=== PATIENT | female | born 1980 | race Caucasian/White ===

== ENCOUNTER 2021-02-14 15:09 | Outpatient (REF) | payer OTHER, SELFPAY ==
--- NOTE | ~2021-02-14 | US_ITS ---
EXAMINATION: US VENOUS ULTRASOUND WITH DOPPLER LOWER EXTREMITY, RIGHT CLINICAL INFORMATION: Right lower extremity pain and swelling. Assess for occult DVT. Prior history right vena seal procedure. COMPARISON: Right lower extremity venous ultrasound with Doppler 10/22/2018, 10/12/2018 TECHNIQUE: Ultrasound of the deep veins is performed from the hip to the calf with compression sonography and color and pulse Doppler assessment. Spectral analysis with color-flow imaging is performed. FINDINGS: There is normal venous compression and respiratory variation and augmented flow. The visualized common femoral vein, superficial femoral vein, profunda femoral vein, popliteal vein, and the trifurcation region shows no evidence of deep venous thrombosis. No popliteal fossa cyst demonstrated. US/US venous duplex LE RT IMPRESSION: No DVT demonstrated in the right lower extremity.
== END 2021-02-14 15:10 | disposition home or self-care (01) ==
LOC: HO.HMGCX 15:09
PROVIDERS: PCP Internal Medicine; Visit Provider Nurse Practitioner Family
DX: I83.91 Asymptomatic varicose veins of right lower extremity (principal); M79.89 Other specified soft tissue disorders
CPT/HCPCS: 93971

== ENCOUNTER → 2021-02-27 14:39 | Outpatient (BNVA) | payer OTHER, SELFPAY | PROVIDERS: PCP Internal Medicine; Visit Provider Surgery Vascular Surgery ==

== ENCOUNTER 2021-03-27 07:53 | Outpatient (REF) | payer OTHER, SELFPAY ==
--- NOTE | ~2021-03-27 | US_ITS ---
EXAMINATION: BILATERAL LOWER EXTREMITY VENOUS ULTRASOUND (Reflux Exam) CLINICAL INDICATION: Lower extremity varicose veins. COMPARISON: Right lower extremity venous Doppler ultrasound on 02/14/2021. TECHNIQUE: Color flow triplex imaging and compression Doppler was performed to evaluate both the deep and the superficial systems bilaterally. To evaluate the superficial system, the examination was performed in the upright position. Color-flow Doppler ultrasound and compression ultrasound were utilized. In addition, maneuvers were utilized to demonstrate reflux. FINDINGS: 1. DEEP VENOUS ULTRASOUND OF THE RIGHT LOWER EXTREMITY: Common Femoral Vein: Compressible, normal respiratory variation and augmented flow. Femoral vein: Compressible, normal color flow and augmentation. Popliteal Vein: Compressible, normal augmentation. Deep Reflux: There is no evidence of reflux in the deep system in either the common femoral vein or the popliteal vein. There is no evidence of a Jeter's cyst. 2. SUPERFICIAL ULTRASOUND WITH DOPPLER OF RIGHT LOWER EXTREMITY GREAT SAPHENOUS VEIN: Saphenofemoral junction: 0.8 cm; Reflux: No evidence of reflux. Proximal thigh: 0.7 cm; Reflux: No evidence of reflux. Mid thigh: 0.2 cm; Reflux: Greater than 3.3 seconds of reflux. Above knee: 0.3 cm; Reflux: No evidence of reflux. At knee: 0.3 cm; Occluded. Below knee: 3 cm; Occluded. Mid calf: 0.3 cm; Reflux: Occluded. Ankle: 0.3 cm; Reflux: No evidence of reflux. DUPLICATED GREAT SAPHENOUS VEIN: Lateral, 0.4 cm at the junction, no reflux. SMALL SAPHENOUS VEIN: Saphenopopliteal junction: 0.4 cm; No evidence of reflux. Mid calf: 0.3 cm; No evidence of reflux. Distal calf: 0.3 cm; No evidence of reflux. VEIN OF GIACOMINI: None Imaged. PERFORATORS: Distal calf, 0.2 cm, no reflux. VARICOSITIES: Proximal thigh, 0.4 cm, no reflux. Distal thigh, 0.3 cm, greater than 1.8 seconds of reflux. 3. DEEP VENOUS ULTRASOUND OF THE LEFT LOWER EXTREMITY: Common Femoral Vein: Compressible, normal respiratory variation and augmented flow. Femoral vein: Compressible, normal color flow and augmentation. Popliteal Vein: Compressible, normal augmentation. Deep Reflux: There is no evidence of reflux in the deep system in either the common femoral vein or the popliteal vein. There is no evidence of a Jeter's cyst. 4. SUPERFICIAL ULTRASOUND WITH DOPPLER OF LEFT LOWER EXTREMITY GREAT SAPHENOUS VEIN: Saphenofemoral junction: 1.1 cm; Reflux: No evidence of reflux. Proximal thigh: 0.7 cm; Reflux: No evidence of reflux. Mid thigh: 0.4 cm; Reflux: No evidence of reflux. Above knee: 0.4 cm; Reflux: No evidence of reflux. At knee: 0.5 cm; Reflux: No evidence of reflux. Below knee: 0.4 cm; Reflux: No evidence of reflux. Mid calf: 0.4 cm; Reflux: No evidence of reflux. Ankle: 0.4 cm; Reflux: No evidence of reflux. DUPLICATED GREAT SAPHENOUS VEIN: Medial, 0.4 cm at the junction, no reflux. SMALL SAPHENOUS VEIN: Saphenopopliteal junction: 0.2 cm; No evidence of reflux. Mid calf: 0.2 cm; No evidence of reflux. Distal calf: 0.4 cm; greater than 1.5 seconds of reflux. VEIN OF GIACOMINI: None Imaged. PERFORATORS: None Imaged VARICOSITIES: Proximal thigh, 0.3 cm, no reflux. Midcalf, 0.3 cm, no reflux. Distal calf, 0.3 cm, no reflux. US/US venous duplex LE BI IMPRESSION: 1. Segmental right great saphenous insufficiency at the mid thigh. The right great saphenous vein is occluded at the knee to the mid calf. 2. No evidence of small saphenous venous insufficiency on the right. 3. No evidence of left great saphenous venous insufficiency. There is segmental reflux within the distal left small saphenous vein. 4. Bilateral varicosities as described. 5. No evidence of DVT or deep venous insufficiency.
== END 2021-03-27 07:54 | disposition home or self-care (01) ==
LOC: HO.US 07:53
PROVIDERS: Visit Provider Surgery Vascular Surgery
DX: I83.11 Varicose veins of right lower extremity with inflammation (principal)
CPT/HCPCS: 93970

== ENCOUNTER 2022-10-03 14:25 | Outpatient (AMB) | payer OTHER, SELFPAY ==
--- NOTE | 2022-10-03 15:04 | MHC.PC.OV ---
Vital Signs 10/03/22 15:05 Height 5 ft 3 in Weight 211 lb BMI 37.3 BP 110/64 Blood Pressure Location Lt brachial Position Sitting Pulse 87 Pulse Source Pulse Oximeter Pulse Oximetry (%) 99 Oxygen Delivery Method Room Air Intake Visit Reasons: Annual Physical Intake Note: Pt is here today for her PE Is last menstrual period known: Yes Last menstrual period: 09/13/22 Allergies tuberculin,PPD,multi-puncture Allergy (Unknown, Verified 06/20/25 10:36) reash ppd Allergy (Unknown, Uncoded 06/20/25 10:36) Rash Medication List - Last Reconciled 10/03/22 by Ameena Ryan MD No Known Home Meds Tobacco use date assessed: 10/03/22 HPI Annual Physical HPI Details 32-year-old lady here today for physical exam. She is overdue for screening mammogram and cervical cancer screening,, both of which came back with negative results. She is up-to-date with her COVID vaccine including the booster and is up-to-date with flu shot. [facility] Medical History (Updated 08/02/25 @ 17:04 by Yesenia Uribe APRN) Generalized headaches Colon cancer screening Reactive airway disease with wheezing Irregular menstrual cycle Anemia NATALIA on CPAP Hx of deep venous thrombosis Right leg DVT Impaired fasting glucose Lateral epicondylitis of left elbow Normal Pap smear Obesity Varicose veins of right lower extremity Mild intermittent asthma Obstructive sleep apnea on CPAP Urinary, incontinence, stress female Surgical History History of open reduction and internal fixation (ORIF) procedure Family History Father HTN (hypertension) Colon cancer Mother HTN (hypertension) Diabetes mellitus Mental health disorder Brother Parkinson disease Sister Depression Mental health disorder Brother No problems noted. Brother No problems noted. 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 1. Little interest or pleasure in doing things: more than half the days 2. Feeling down, depressed, or hopeless: several days 3. Trouble falling or staying asleep, or sleeping too much: more than half the days 4. Feeling tired or having little energy: not at all 5. Poor appetite or overeating: several days 6. Feeling bad about yourself - or that you are a failure or have let yourself or your family down: several days 7. Trouble concentrating on things, such as reading the newspaper or watching television: nearly every day 8. Moving or speaking so slowly that other people could have noticed. Or the opposite - being so fidgety or restless that you have been moving around a lot more than usual: nearly every day 9. Thoughts that you would be better off or of hurting yourself in some way: not at all Total score: 13 Source: Developed by Drs. Jas Bernal, Rae Escoto, Shashi Stafford and colleagues, with an educational abiel from [employer]. Thrive Questionnaire Date Thrive assessed: 10/03/22 I am a: Patient What is your living situation today?: I have a steady place to live Within the past 12 months, did the food you bought not last and you didn't have the money to get more?: Sometimes True Within the past 12 months, did you worry whether your food would run out before you got money to buy more?: Never true Do you have trouble paying for medicines?: No Do you have trouble getting transportation to medical appointments?: No Do you have trouble paying your heating and electricity bill?: No Do you have trouble taking care of your child, family member or friend?: No Do you have trouble with day-to-day activities such as bathing, preparing meals, shopping, managing finances, etc.?: No Are you currently unemployed and looking for a job?: No Are you interested in more education?: No AUDIT C Alcohol Use Questionnaire (AUDIT-C) 1. How often do you have a drink containing alcohol?: Monthly or less 2. How many drinks containing alcohol do you have on a typical day when you are drinking?: 1 or 2 3. How often do you have six or more drinks on one occasion?: Never Total Score: 1 JULIO C-7 AMB Questionnaire JULIO C-7 Date JULIO C - 7 assessed: 10/03/22 Feeling nervous, anxious, or on edge: 2 = More than half the days Not being able to stop or control worryin = More than half the days Worrying too much about different things: 2 = More than half the days Trouble relaxin = Several days Being so restless that it is hard to sit still: 2 = More than half the days Becoming easily annoyed or irritable: 2 = More than half the days Feeling afraid as if something awful might happen: 0 = Not at all Total JULIO C-7 score (0-4 normal; 5-9 mild; 10-14 moderate; 15-21 severe): 11 Source: Developed by Drs. Jas Bernal, Rae Escoto, Shashi Stafford and colleagues, with an educational abiel from [employer]. Physical exam (Primary Care) Vital Signs: Last Vital Signs Pulse 87 10/03/22 15:05 BP 110/64 10/03/22 15:05 Pulse Ox 99 10/03/22 15:05 Oxygen Delivery Method Room Air 10/03/22 15:05 BMI result Body Mass Index 37.3 Tobacco/Smoking Status: Tobacco use Status Tobacco use date assessed 10/03/22 10/03/22 15:07 Patient Tobacco Use Status Never used Tobacco 10/03/22 15:07 e-Cigarette/Vaping Use Never Used 10/03/22 15:07 PHQ-9: PHQ-9 Score PHQ-9: Total score 13 06/13/24 02:33 Thrive Assessment: Date of Thrive Assessment Date Thrive assessed 10/03/22 10/03/22 15:16 Office Procedures Flu Questionnaire Does the patient have a severe egg allergy?: No Does the patient have severe life threatening allergies?: No Does the patient have a fever or illness today?: No Has the patient ever had Guillain-Powers Syndrome?: No Has the patient ever had any past reaction to a flu shot?: No Immunizations flu vacc [id number] 6mos up(PF) 60 mcg(15 mcgx4)/0.5 mL IM syringe Performing Provider: Ameena Ryan MD Performing Location: [facility] [place] [facility] Administered by: Alondra Corona CMA on 10/03/22 15:20 Dose Route Admin Location Dispensed Lot Number Expiration Date NDC Integrated Circuit Layout Designer 0.5 mL IM Left Deltoid 0.5 mL [id number] 03/21/23 23723-121-32 [employer] Total Dispensed Waste 0.5 mL 0 % VIS Given Date VIS Provided VIS Publication Date 10/03/22 Single Vaccine 21 Eligibility Eligibility Date Funding Source Not [facility] Eligible 10/03/22 Private Coding Level of Care Code Admin Sign Off/No Billing Diagnoses Obesity E66.9 Impaired fasting glucose R73.01 Annual visit for general adult medical examination with abnormal findings Z00.01 Irregular menstrual cycle N92.6 Cervical cancer screening Z12.4 Reactive airway disease with wheezing J45.909
[2022-10-03 15:05] VITALS: BP 110/64; PULSE 87; O2SAT 99; BMI 37.3
== END 2022-10-03 15:49 | disposition home or self-care (01) ==
LOC: HO.HMGC 14:25
PROVIDERS: PCP Internal Medicine; Visit Provider Internal Medicine
DX: E66.9 Obesity, unspecified (principal); R73.01 Impaired fasting glucose; Z00.01 Encounter for general adult medical examination with abnormal findings; N92.6 Irregular menstruation, unspecified; Z12.4 Encounter for screening for malignant neoplasm of cervix; J45.909 Unspecified asthma, uncomplicated
CPT/HCPCS: 99499

== ENCOUNTER 2023-07-16 12:01 | Outpatient (AMB) | payer OTHER, SELFPAY ==
--- NOTE | 2023-07-16 12:42 | AM.OFFVISNUR ---
Intake Intake Visit Reasons: TDAP Allergies tuberculin,PPD,multi-puncture Allergy (Unknown, Verified 10/03/22 15:29) reash ppd Allergy (Unknown, Uncoded 10/03/22 15:29) Rash Immunizations Boostrix Tdap 2.5 Lf unit-8 mcg-5 Lf/0.5 mL intramuscular syringe Performing Provider: Ameena Ryan MD Performing Location: [facility] Administered by: Alondra Corona CMA on 07/16/23 12:42 Dose Route Admin Location Dispensed Lot Number Expiration Date NDC Journeyman Mechanic 0.5 mL IM Left Deltoid 0.5 mL [id number] 10/02/25 [id number] [employer] Live VIS Given Date VIS Provided VIS Publication Date 07/16/23 Single Vaccine 21 Eligibility Eligibility Date Funding Source Not [facility] Eligible 07/16/23 Private Coding Assessment & Plan Assessment & Plan Orders: Orders TDaP Immunization Today Z23 - Encounter for immunization
== END 2023-07-16 12:44 | disposition home or self-care (01) ==
PROVIDERS: PCP Internal Medicine; Visit Provider Internal Medicine
DX: Z23 Encounter for immunization (principal)
CPT/HCPCS: 90471; 90715

== ENCOUNTER 2023-07-25 16:56 | Outpatient (REF) | payer OTHER, SELFPAY ==
[2023-07-28 22:54] LABS: Mumps Virus IgG Antibody <9.00 AU/mL; Rubella IgG Antibody 3.97 Index
== END 2023-07-25 16:57 | disposition home or self-care (01) ==
LOC: HO.LAB 16:56
PROVIDERS: PCP Internal Medicine; Visit Provider Internal Medicine
DX: Z01.84 Encounter for antibody response examination (principal)
CPT/HCPCS: 36415; 86735; 86762; 86765

== ENCOUNTER 2023-08-20 12:20 | Outpatient (AMB) | payer OTHER, SELFPAY ==
--- NOTE | 2023-08-20 12:32 | AM.OFFVISNUR ---
Intake Intake Visit Reasons: MMR Intake Note: pt was here in office for MMR vaccine. first vaccine given, tolerated well and made another appt in 4 weeks for second dose Allergies tuberculin,PPD,multi-puncture Allergy (Unknown, Verified 10/03/22 15:29) reash ppd Allergy (Unknown, Uncoded 10/03/22 15:29) Rash Immunizations M-M-R II (PF) 1,000-12,500 TCID50/0.5 mL subcutaneous solution Performing Provider: Ameena Ryan MD Performing Location: [place] [facility] Administered by: Danny Mike CMA on 08/20/23 12:48 Dose Route Admin Location Dispensed Lot Number Expiration Date NDC Nipple Threader 0.5 mL subcut Left Arm 0.5 mL [id number] 06/18/24 2779-9562-29 [employer] D VIS Given Date VIS Provided VIS Publication Date 08/20/23 Single Vaccine 21 Eligibility Eligibility Date Funding Source Not [facility] Eligible 08/20/23 Private Coding Assessment & Plan Assessment & Plan Orders: Orders MMR Immunization Today Z23 - Encounter for immunization
== END 2023-08-20 13:13 | disposition home or self-care (01) ==
LOC: HO.HMGC 12:20
PROVIDERS: PCP Internal Medicine; Visit Provider Internal Medicine
DX: Z23 Encounter for immunization (principal)
CPT/HCPCS: 90471; 90707

== ENCOUNTER 2023-09-17 12:12 | Outpatient (AMB) | payer OTHER, SELFPAY ==
--- NOTE | 2023-09-17 12:19 | AM.OFFVISNUR ---
Intake Intake Visit Reasons: mmr 2nd round Intake Note: Pt is here for MMR booster Allergies tuberculin,PPD,multi-puncture Allergy (Unknown, Verified 09/17/23 12:28) reash ppd Allergy (Unknown, Uncoded 09/17/23 12:28) Rash Immunizations M-M-R II (PF) 1,000-12,500 TCID50/0.5 mL subcutaneous solution Performing Provider: Ameena Ryan MD Performing Location: [facility] Administered by: Lynnette Marcelo CMA on 09/17/23 12:30 Dose Route Admin Location Dispensed Lot Number Expiration Date NDC Metal Container Maker 0.5 mL subcut Left Arm 0.5 mL [id number] 06/18/24 2089-7488-25 [employer] D VIS Given Date VIS Provided VIS Publication Date 09/17/23 Single Vaccine 21 Eligibility Eligibility Date Funding Source Not [facility] Eligible 09/17/23 Private Coding Assessment & Plan Assessment & Plan Orders: Orders MMR Immunization Today Z23 - Encounter for immunization
== END 2023-09-17 12:58 | disposition home or self-care (01) ==
PROVIDERS: PCP Internal Medicine; Visit Provider Internal Medicine
DX: Z23 Encounter for immunization (principal)
CPT/HCPCS: 90471; 90707

== ENCOUNTER 2023-09-17 12:34 | Outpatient (REF) | payer OTHER, SELFPAY | END 2023-09-17 12:35 | disposition home or self-care (01) | LOC: HO.HMGCLDS 12:34 | PROVIDERS: PCP Internal Medicine; Visit Provider Internal Medicine | DX: Z01.84 Encounter for antibody response examination (principal) | CPT/HCPCS: 36415; 86787 ==

== ENCOUNTER 2024-01-13 08:52 | Outpatient (AMB) | payer OTHER, SELFPAY ==
[2024-01-13 08:58] VITALS: BP 132/94; PULSE 88; O2SAT 98; BMI 38.2
--- NOTE | 2024-01-13 08:58 | AM.OFFWIN_ITS ---
Intake Vital Signs 3 01/13/24 08:58 Height 5 ft 2 in Weight 209 lb BMI 38.2 BP 132/94 H Blood Pressure Location Lt brachial Position Sitting Pulse 88 Pulse Source Pulse Oximeter Pulse Oximetry (%) 98 Oxygen Delivery Method Room Air Intake Visit Reasons: EP LT ankle pain Patient Tobacco Use Status: Never used Tobacco Allergies tuberculin,PPD,multi-puncture Allergy (Unknown, Verified 01/13/24 08:59) reash ppd Allergy (Unknown, Uncoded 09/17/23 12:28) Rash Medication List - Last Reconciled 01/13/24 by Candis Leslie MD albuterol sulfate 90 mcg/actuation 2 puffs inhalation Q6H PRN No Known Home Meds Do you need a note to return to daycare/school/sports/work: Yes HPI EP LT ankle pain 2 HPI0 Details Patient is a 43-year-old female who walks all day Came in today to be evaluated for pain left heel area Patient says that it started Friday, and got worse to a point where she was not able to walk She took ibuprofen which did help but then pain came back On examination she is tender around left heel area I have ordered x-ray to see if she has developed a heel spur Meanwhile I have sent naproxen 500 mg that she may take with food b.i.d. for upper 10 days Note given , she may continue working sitting down for next 1 week PFSH Medical History Reactive airway disease with wheezing Irregular menstrual cycle Anemia NATALIA on CPAP Hx of deep venous thrombosis Right leg DVT Impaired fasting glucose Lateral epicondylitis of left elbow Normal Pap smear Obesity Varicose veins of right lower extremity Mild intermittent asthma Obstructive sleep apnea on CPAP Depression with anxiety Urinary, incontinence, stress female Surgical History History of open reduction and internal fixation (ORIF) procedure Family History Father HTN (hypertension) Colon cancer Mother HTN (hypertension) Diabetes mellitus Mental health disorder Brother Parkinson disease Sister Depression Mental health disorder Brother No problems noted. Brother No problems noted. Maternal Grandfather Tuberculosis Maternal Grandmother Diabetes mellitus Liver problem Paternal Grandfather Unknown family medical history Paternal Grandmother Unknown family medical history Social History Housing: Apartment Alcohol intake: current Alcohol intake frequency: a few times a month Patient Tobacco Use Status: Never used Tobacco e-Cigarette/Vaping Use: Never Used service: No Current occupational status: employed Cognitive needs: No Hearing needs: No Vision needs: Yes Review of Systems Const All systems reviewed & are unremarkable except as noted in HPI and below Physical Exam Vital Signs: Last Vital Signs Pulse 88 01/13/24 08:58 BP 132/94 H 01/13/24 08:58 Pulse Ox 98 01/13/24 08:58 Oxygen Delivery Method Room Air 01/13/24 08:58 BMI result Body Mass Index 38.2 Const General: no acute distress Orientation/consciousness: patient oriented x3 Eyes General: appearance normal, both eyes and all related structures Resp Effort & Inspection: normal respiratory effort and able to speak in complete sentences Auscultation: clear to auscultation bilaterally Cardio Other: S1 S2 Neuro General: patient oriented x3 Extrem Ankle/foot/toe images: 2 1. Pain with pressure Psych Mental Status: mental status grossly normal Assessment & Plan Assessment & Plan (1) Pain of left heel: Code(s): M79.672 - Pain in left foot Plan Patient is a 43-year-old female who walks all day Came in today to be evaluated for pain left heel area Patient says that it started Friday, and got worse to a point where she was not able to walk She took ibuprofen which did help but then pain came back On examination she is tender around left heel area , there no signs of infection, dorsalis pedis pulse 2 +, she is able to all toes without any discomfort No pain with ankle movement I have ordered x-ray to see if she has developed a heel spur Meanwhile I have sent naproxen 500 mg that she may take with food b.i.d. for upper 10 days Note given , she may continue working sitting down for next 1 week Orders: Orders 2 XR foot LT min 3V Today M79.672 - Pain in left foot Medications: New 2 naproxen 500 mg PO BID PRN 20 tabs 0RF pain 10 days Coding Level of Care Code Est Pt Level 3 (07795) Diagnoses Pain of left heel M79.672
== END 2024-01-13 10:06 | disposition home or self-care (01) ==
PROVIDERS: PCP Internal Medicine; Visit Provider Internal Medicine
DX: M79.672 Pain in left foot (principal)
CPT/HCPCS: 99213

== ENCOUNTER 2024-01-13 10:08 | Outpatient (REF) | payer OTHER, SELFPAY ==
--- NOTE | ~2024-01-13 | XR_ITS ---
EXAMINATION: XR FOOT, LEFT CLINICAL INFORMATION: Pain in left foot. COMPARISON: 04/26/2019. TECHNIQUE: AP, lateral, and oblique views of the left foot. FINDINGS: The bones and soft tissues are normal. No fracture. Alignment is anatomic. Joint spaces are maintained. Mild hypertrophic change along the dorsal aspect of the calcaneus. Bone mineralization is normal. Mild degenerative changes in the first metatarsophalangeal joint. XR/XR foot LT min 3V IMPRESSION: 1. Mild degenerative changes first metatarsophalangeal joint. 2. Mild hypertrophic change along the dorsal aspect of the calcaneus.
== END 2024-01-13 10:09 | disposition home or self-care (01) ==
LOC: HO.HMGCX 10:08
PROVIDERS: PCP Internal Medicine; Visit Provider Internal Medicine
DX: M79.672 Pain in left foot (principal)
CPT/HCPCS: 73630

== ENCOUNTER 2024-02-23 11:00 | Outpatient (AMB) | payer OTHER, SELFPAY ==
[2024-02-23 12:38] VITALS: BP 120/70; PULSE 76; TEMP 36.6; O2SAT 97; BMI 37.9
--- NOTE | 2024-02-23 12:38 | MHC.OFFWIV ---
Intake Vital Signs 02/23/24 12:38 Height 5 ft 2 in Weight 207 lb BMI 37.9 BP 120/70 Blood Pressure Location Lt brachial Position Sitting Pulse 76 Pulse Source Pulse Oximeter Temp 97.9 F Temp Source Temporal Artery Scan Pulse Oximetry (%) 97 Oxygen Delivery Method Room Air Intake Visit Reasons: EP sinus infection/pressure asthma Intake Note: pt is here today for sinus infection pressure asthma started 1 week ago Patient Tobacco Use Status: Never used Tobacco Allergies tuberculin,PPD,multi-puncture Allergy (Unknown, Verified 02/23/24 12:41) reash ppd Allergy (Unknown, Uncoded 02/23/24 12:41) Rash Do you need a note to return to daycare/school/sports/work: Yes HPI EP sinus infection/pressure asthma HPI Details Patient presents for a sick visit. Reporting symptoms of sinus congestion, sore throat and difficulty swallowing. Low-grade fever. No family member is sick. No recent travel. Patient reports symptoms of malaise and fatigue. [facility] [place] Medical History Reactive airway disease with wheezing Irregular menstrual cycle Anemia NATALIA on CPAP Hx of deep venous thrombosis Right leg DVT Impaired fasting glucose Lateral epicondylitis of left elbow Normal Pap smear Obesity Varicose veins of right lower extremity Mild intermittent asthma Obstructive sleep apnea on CPAP Depression with anxiety Urinary, incontinence, stress female Surgical History History of open reduction and internal fixation (ORIF) procedure Family History Father HTN (hypertension) Colon cancer Mother HTN (hypertension) Diabetes mellitus Mental health disorder Brother Parkinson disease Sister Depression Mental health disorder Brother No problems noted. Brother No problems noted. Maternal Grandfather Tuberculosis Maternal Grandmother Diabetes mellitus Liver problem Paternal Grandfather Unknown family medical history Paternal Grandmother Unknown family medical history Social History Housing: Apartment Alcohol intake: current Alcohol intake frequency: a few times a month Patient Tobacco Use Status: Never used Tobacco e-Cigarette/Vaping Use: Never Used service: No Current occupational status: employed Cognitive needs: No Hearing needs: No Vision needs: Yes Physical Exam Vital Signs: Last Vital Signs Temp 97.9 F 02/23/24 12:38 Pulse 76 02/23/24 12:38 BP 120/70 02/23/24 12:38 Pulse Ox 97 02/23/24 12:38 Oxygen Delivery Method Room Air 02/23/24 12:38 BMI result Body Mass Index 37.9 Const General: cooperative and healthy appearing Nutritional Appearance: well nourished Orientation/consciousness: patient oriented x3 Limitations: no limitations HEENT Head: Yes normal to inspection Eyes General: appearance normal, both eyes and all related structures Neck Neck: Yes normal visual inspection Chest Chest palpation & inspection: normal palpation of entire chest wall Resp Effort & Inspection: normal respiratory effort Neuro General: patient oriented x3 Assessment & Plan Assessment & Plan (1) Upper respiratory tract infection: Code(s): J06.9 - Acute upper respiratory infection, unspecified Plan: Antibiotics ordered. Increase fluid intake. Tylenol for aches and pains. If symptoms worsen, follow-up here for a recheck. Coding Level of Care Code Est Pt Level 3 (26700) Diagnoses Upper respiratory tract infection J06.9
== END 2024-02-23 14:03 | disposition home or self-care (01) ==
PROVIDERS: PCP Internal Medicine; Visit Provider Internal Medicine
DX: J06.9 Acute upper respiratory infection, unspecified (principal)
CPT/HCPCS: 99213

== ENCOUNTER 2024-06-10 15:04 | Outpatient (AMB) | payer OTHER, SELFPAY ==
--- NOTE | 2024-06-10 15:59 | MHC.PC.OV ---
Vital Signs 06/10/24 16:00 Height 5 ft 2 in Weight 210 lb BMI 38.4 BP 110/70 Blood Pressure Location Lt brachial Position Sitting Pulse 68 Pulse Source Pulse Oximeter Pulse Oximetry (%) 97 Oxygen Delivery Method Room Air Intake Visit Reasons: PE Intake Note: Pt is here today for her PE Last mammogram 09/13/19, papsmear 2019 Allergies tuberculin,PPD,multi-puncture Allergy (Unknown, Verified 06/13/24 17:12) reash ppd Allergy (Unknown, Uncoded 06/13/24 17:12) Rash Medication List - Last Reconciled 06/13/24 by Ameena Ryan MD albuterol sulfate 90 mcg/actuation 2 puffs inhalation Q6H PRN naproxen 500 mg PO BID PRN 10 days Tobacco use date assessed: 06/10/24 Dental Screening Dental Screen Date: 06/10/24 Did you have a dental visit in the last 12 months?: No Did you have a dental problem in the last 6 months where you did not have access to dental care?: No Was dental information given to patient?: Patient has dentist HPI PE HPI Details 44-year-old lady here today for physical exam. She is overdue for screening mammogram, last done in 2019, and last cervical cancer screening was done in 2019 which showed negative findings She has obstructive sleep apnea currently on CPAP, has mild intermittent asthma takes albuterol inhaler as needed. Patient states that mom was just diagnosed with COVID, she is self tested this morning and came back faintly positive would like to get rechecked. Denies any fever, no cough no headache but has some nasal congestion but no sore throat. Complains of difficulty keeping her focus at tasks, unable to stay still, would like to be checked for ADD PFSH Medical History (Updated 06/13/24 @ 17:20 by Ameena Ryan MD) Colon cancer screening Reactive airway disease with wheezing Irregular menstrual cycle Anemia NATALIA on CPAP Hx of deep venous thrombosis Right leg DVT Impaired fasting glucose Lateral epicondylitis of left elbow Normal Pap smear Obesity Varicose veins of right lower extremity Mild intermittent asthma Obstructive sleep apnea on CPAP Depression with anxiety Urinary, incontinence, stress female Surgical History History of open reduction and internal fixation (ORIF) procedure Family History Father HTN (hypertension) Colon cancer Mother HTN (hypertension) Diabetes mellitus Mental health disorder Brother Parkinson disease Sister Depression Mental health disorder Brother No problems noted. Brother No problems noted. Maternal Grandfather Tuberculosis Maternal Grandmother Diabetes mellitus Liver problem Paternal Grandfather Unknown family medical history Paternal Grandmother Unknown family medical history Social History Housing: Apartment Alcohol intake: current Alcohol intake frequency: a few times a month Patient Tobacco Use Status: Never used Tobacco e-Cigarette/Vaping Use: Never Used service: No Current occupational status: employed Cognitive needs: No Hearing needs: No Vision needs: Yes Questionnaire PHQ-9 Over the last 2 weeks, how often have you been bothered by any of the following problems? 1. Little interest or pleasure in doing things: several days 2. Feeling down, depressed, or hopeless: not at all 3. Trouble falling or staying asleep, or sleeping too much: several days 4. Feeling tired or having little energy: several days 5. Poor appetite or overeating: several days 6. Feeling bad about yourself - or that you are a failure or have let yourself or your family down: not at all 7. Trouble concentrating on things, such as reading the newspaper or watching television: several days 8. Moving or speaking so slowly that other people could have noticed. Or the opposite - being so fidgety or restless that you have been moving around a lot more than usual: more than half the days 9. Thoughts that you would be better off or of hurting yourself in some way: not at all Total score: 7 Depression Screening Interpretation: Negative (Patient however complaining of difficulty with keeping her focus and concentration, unable to stay still) Depression Screening Done: Yes 88752 - PHQ-9 Billing: Yes Source: Developed by Drs. Jas Bernal, Rae Escoto, Shashi Stafford and colleagues, with an educational abiel from [employer]. Thrive Questionnaire Date Thrive assessed: 10/03/22 I am a: Patient What is your living situation today?: I have a steady place to live Within the past 12 months, did the food you bought not last and you didn't have the money to get more?: Never true Within the past 12 months, did you worry whether your food would run out before you got money to buy more?: Never true Do you have trouble paying for medicines?: No Do you have trouble getting transportation to medical appointments?: No Do you have trouble paying your heating and electricity bill?: No Do you have trouble taking care of your child, family member or friend?: No Do you have trouble with day-to-day activities such as bathing, preparing meals, shopping, managing finances, etc.?: No Are you interested in more education?: No Please select the resources that you would like help with: None Currently or been in a relationship where the following occur: No concerns reported THRIVE Score: 0 AUDIT C Alcohol Use Questionnaire (AUDIT-C) 1. How often do you have a drink containing alcohol?: Monthly or less 2. How many drinks containing alcohol do you have on a typical day when you are drinking?: 1 or 2 3. How often do you have six or more drinks on one occasion?: Never Total Score: 1 JULIO C-7 AMB Questionnaire JULIO C-7 Date JULIO C - 7 assessed: 10/03/22 Feeling nervous, anxious, or on edge: 1 = Several days Not being able to stop or control worryin = Several days Worrying too much about different things: 1 = Several days Trouble relaxin = Several days Being so restless that it is hard to sit still: 1 = Several days Becoming easily annoyed or irritable: 1 = Several days Feeling afraid as if something awful might happen: 0 = Not at all Total JULIO C-7 score (0-4 normal; 5-9 mild; 10-14 moderate; 15-21 severe): 6 Source: Developed by Drs. Jas Bernal, Rae Escoto, Shashi Stafford and colleagues, with an educational abiel from [employer]. Physical exam (Primary Care) Vital Signs: Last Vital Signs Pulse 68 06/10/24 16:00 BP 110/70 06/10/24 16:00 Pulse Ox 97 06/10/24 16:00 Oxygen Delivery Method Room Air 06/10/24 16:00 BMI result Body Mass Index 38.4 Tobacco/Smoking Status: Tobacco use Status Tobacco use date assessed 06/10/24 06/10/24 16:01 Patient Tobacco Use Status Never used Tobacco 06/10/24 16:01 e-Cigarette/Vaping Use Never Used 06/10/24 16:01 PHQ-9: PHQ-9 Score PHQ-9: Total score 7 06/10/24 16:24 Depression Screening Interpretation: Negative (Patient however complaining of difficulty with keeping her focus and concentration, unable to stay still) Thrive Assessment: Date of Thrive Assessment Date Thrive assessed 10/03/22 06/10/24 16:01 Currently or been in a relationship where the following occur: No concerns reported Assessment and Plan Assessment & Plan (1) Obesity: Code(s): E66.9 - Obesity, unspecified Plan: Your BMI is above the ideal range. Recommended focusing on improving health instead of dieting. Mediterranean diet is a healthy diet that helps, limit food high in fat, sugar, and calories. Eat slowly, pay attention to portion sizes, plan your meals ahead of time, start regular physical activity, at least 150 minutes of moderate intensity exercise, or 90 minutes per week of vigorous exercise. Keeping a food diary, tracking what you eat and your physical activity can help assess what improvements you can make. There are many health problems associated with being overweight/obese, so it is important to improve your diet and exercise. There are medications and surgical options available, but Lifestyle changes are the 1st step. (2) Anemia: Code(s): D64.9 - Anemia, unspecified Qualifiers: Anemia type: unspecified type Qualified Code(s): D64.9 - Anemia, unspecified Plan: Repeat CBC ordered (3) Annual visit for general adult medical examination with abnormal findings: Code(s): Z00.01 - Encounter for general adult medical examination with abnormal findings Plan: Will check appropriate labs. Recommended dental visit every 6 months and regular eye exams, at least every 2 years. Take adequate calcium in diet and vitamin-D 3 at 2000 IU per cap once a day, in addition to weight-bearing exercises to help maintain good muscle tone and weight control. Instructed to do self-breast exam, and recommended to get yearly mammogram, mammogram ordered. Overdue for her colon cancer screening, does not want to get colonoscopy, Cologuard testing ordered. Reminded to get her yearly flu shot and COVID booster (4) Colon cancer screening: Code(s): Z12.11 - Encounter for screening for malignant neoplasm of colon Plan: Cologuard ordered (5) Exposure to COVID-19 virus: Code(s): Z20.822 - Contact with and (suspected) exposure to COVID-19 Plan: Test done to check for COVID, flu and RSV results still pending (6) Cervical cancer screening: Code(s): Z12.4 - Encounter for screening for malignant neoplasm of cervix Plan: Referred to [facility] [place] [facility] for routine Pap and pelvic exam (7) Obstructive sleep apnea on CPAP: Comment: Seen by Dr. Gallagher Code(s): G47.33 - Obstructive sleep apnea (adult) (pediatric); Z99.89 - Dependence on other enabling machines and devices Plan: Currently on CPAP, followed by Dr. Gallagher (8) Difficulty concentrating: Code(s): R41.840 - Attention and concentration deficit Plan: referred to Nila christiansen for evaluation for ADD Orders: Orders Lipid Panel 06/10/24 D64.9 - Anemia, unspecified, E66.9 - Obesity, unspecified, R73.01 - Impaired fasting glucose, Z00.01 - Encounter for general adult medical examination with abnormal findings Alanine Aminotransferase 06/10/24 D64.9 - Anemia, unspecified, E66.9 - Obesity, unspecified, R73.01 - Impaired fasting glucose, Z00.01 - Encounter for general adult medical examination with abnormal findings Aspartate Amino Transferase 06/10/24 D64.9 - Anemia, unspecified, E66.9 - Obesity, unspecified, R73.01 - Impaired fasting glucose, Z00.01 - Encounter for general adult medical examination with abnormal findings MM tomosynthesis screening BI 06/10/24 Z12.31 - Encounter for screening mammogram for malignant neoplasm of breast Basic Metabolic Panel Fasting 06/10/24 D64.9 - Anemia, unspecified, E66.9 - Obesity, unspecified, R73.01 - Impaired fasting glucose, Z00.01 - Encounter for general adult medical examination with abnormal findings Complete Blood Count Auto Diff 06/10/24 D64.9 - Anemia, unspecified, E66.9 - Obesity, unspecified, R73.01 - Impaired fasting glucose, Z00.01 - Encounter for general adult medical examination with abnormal findings SARS-CoV2/FLU/RSV 06/11/24 R09.89 - Other specified symptoms and signs involving the circulatory and respiratory systems Referrals Cologuard Test Z12.11 - Encounter for screening for malignant neoplasm of colon, Z12.12 - Encounter for screening for malignant neoplasm of rectum [employer] Referral Z12.4 - Encounter for screening for malignant neoplasm of cervix Psychiatry Referral R41.840 - Attention and concentration deficit Coding Level of Care Code Est Pt Prev Care 40-64y(75606) Diagnoses Obesity E66.9 Anemia, unspecified type D64.9 Anemia type: unspecified type Annual visit for general adult medical examination with abnormal findings Z00.01 Colon cancer screening Z12.11 Exposure to COVID-19 virus Z20.822 Cervical cancer screening Z12.4 Obstructive sleep apnea on CPAP G47.33; Z99.89 Difficulty concentrating R41.840
[2024-06-10 16:00] VITALS: BP 110/70; PULSE 68; O2SAT 97; BMI 38.4
== END 2024-06-10 17:10 | disposition home or self-care (01) ==
PROVIDERS: PCP Internal Medicine; Visit Provider Internal Medicine
DX: Z00.00 Encounter for general adult medical examination without abnormal findings (principal); E66.9 Obesity, unspecified; Z68.38 Body mass index [BMI] 38.0-38.9, adult; D64.9 Anemia, unspecified; Z12.11 Encounter for screening for malignant neoplasm of colon; Z20.822 Contact with and (suspected) exposure to COVID-19; G47.33 Obstructive sleep apnea (adult) (pediatric); Z99.89 Dependence on other enabling machines and devices; R41.840 Attention and concentration deficit

== ENCOUNTER 2024-06-10 15:04 | Outpatient (REF) | payer OTHER, SELFPAY ==
[2024-06-11 11:00] LABS: Influenza A PCR NEGATIVE (Negative); Influenza B PCR NEGATIVE (Negative); Resp Syncy Virus RNA Qual PCR NEGATIVE (Negative); SARS COV2 PCR INHOUSE NEGATIVE (Negative)
== END 2024-06-10 15:05 | disposition home or self-care (01) ==
LOC: HO.LNP 15:04
PROVIDERS: PCP Internal Medicine; Visit Provider Internal Medicine
DX: R09.89 Other specified symptoms and signs involving the circulatory and respiratory systems (principal); Z20.822 Contact with and (suspected) exposure to COVID-19
CPT/HCPCS: 0241U

== ENCOUNTER 2024-07-09 15:18 | Outpatient (REF) | payer OTHER, SELFPAY ==
--- NOTE | ~2024-07-09 | MM_ITS ---
EXAMINATION: MM SCREENING DIGITAL BREAST TOMOSYNTHESIS, BILATERAL CLINICAL INFORMATION: Screening. Asymptomatic. COMPARISON: Mammography: Comparison is made with available priors TECHNIQUE: Digital breast mammography with tomosynthesis is performed in both the craniocaudal and mediolateral oblique views along with computer-aided detection (CAD). FINDINGS: There are scattered areas of fibroglandular density (ACR BI-RADS breast composition Category b). There are no significant masses, abnormal calcifications, or other abnormalities. MM/MM tomosynthesis screening BI IMPRESSION: No mammographic evidence of malignancy. ASSESSMENT: BI-RADS BI-RADS 1 - Negative RECOMMENDATION: Routine annual mammography screening. 1 year F/U This examination should not preclude the clinical evaluation of a suspicious palpable abnormality. This patient's information was entered into a reminder system with a target due date for their next mammogram. Electronically signed by: Lia Bowden DO 07/21/2024 04:03 PM EDT
== END 2024-07-09 15:19 | disposition home or self-care (01) ==
LOC: HO.MAMMO 15:18
PROVIDERS: PCP Internal Medicine; Visit Provider Internal Medicine
DX: Z12.31 Encounter for screening mammogram for malignant neoplasm of breast (principal)
CPT/HCPCS: 77063; 77067

== ENCOUNTER → 2024-07-09 15:30 | Outpatient (BNV) | payer OTHER, SELFPAY | PROVIDERS: PCP Internal Medicine; Visit Provider Internal Medicine | DX: Z12.31 Encounter for screening mammogram for malignant neoplasm of breast (principal) | CPT/HCPCS: 77063; 77067 ==

== ENCOUNTER 2024-08-06 15:47 | Outpatient (AMB) | payer OTHER, SELFPAY ==
--- NOTE | 2024-08-06 15:59 | MHC.OFFVISPS ---
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 pt has also had more demands on her due to caring for her mother who has dementia; pt reports lifelong trouble focusing and paying attention - in school she would get good grades but often in trouble for being social butterfly, getting out of her seat and talking too much; she did stay back in kindergarten; pt has struggled in workplaces due to adhd symptoms; she has been on work plans to help her do her job and stay on track. she reports her home is often disorganized and household tasks not completed due to inability to start, low motivation to finish or distractibility; she has had friends who help her. she says she never had children as she knew she wasn't cut out to be a parent. she scored 18 on ADHD self report scale and the cut off for very likely dx of ADHD is 13. Past Psychiatric History: no IPLOC; no past tx of ADHD. has been on paxil and prozac in past for anxiety but not much help Subjective Subjective Subjective Medication Compliance: Yes Side effects from medications: No Review of Systems Medical Review of Systems: unchanged Mental Status Exam Mental Status Exam Patient Appearance: Well Grooomed and Appropriate Patient Orientation: Person, Place, Time and Situation Level of Consciousness: Awake Patient Behavior: Appropriate Mood Description: Sad Affect Description: Sad Patient Cognition Impaired: No Ability to Follow Directions: Good Speech Pattern: Clear and Soft-Spoken Memory Description: Intact Hallucinations: None Delusions: Not Present Thought Process: Intact and Goal Oriented Thought Content: positive for Intact and positive for Goal Oriented Judgement: Good Assessment and Plan Assessment & Plan (1) ADHD, predominantly inattentive type: Status: Acute Code(s): F90.0 - Attention-deficit hyperactivity disorder, predominantly inattentive type Plan discussed options for treatment including side effect , risk vs benefits and alternatives agree to trial of wellbutrin xl 150mh daily in am x 14 days then increase to 300mg daily in am. call when ready for refill return in 4 weeks Medications: New bupropion HCl XL (Wellbutrin XL) 150 mg PO QAM 30 tabs 0RF Counseling and coordination of Care Pt. Self Management counseling: Maintenance-social rhythm, Mod caffeine/ETOH intake, Sleep hygiene, Behavior activation, General coping skills and Problem solving Medication management counseling: Effectiveness, Side effects, Dosing range, Duration, Drug interaction and Adherence Diagnosis and Prognosis Counseling: Accuracy of diagnosis, Prognosis over time, Impact of diagnosis on life functions, Impact of family relationship, Problematic behaviors secondary to diagnosis and Adequacy of current interventions Details: I spent 70 minutes reviewing the record, seeing the patient and documenting in the medical record. Counseling provided to the patient/caregiver as outlined below. Addressed patient/caregiver concerns regarding current medication regime including effective adherence. Addressed patient/caregiver concerns regarding diagnosis and prognosis including accuracy of diagnosis, prognosis over time, impact of diagnosis. Addressed patient/caregiver concerns regarding impact of recent stressors. [facility] Medical History Colon cancer screening Reactive airway disease with wheezing Irregular menstrual cycle Anemia NATALIA on CPAP Hx of deep venous thrombosis Right leg DVT Impaired fasting glucose Lateral epicondylitis of left elbow Normal Pap smear Obesity Varicose veins of right lower extremity Mild intermittent asthma Obstructive sleep apnea on CPAP Depression with anxiety Urinary, incontinence, stress female Surgical History History of open reduction and internal fixation (ORIF) procedure Family History Father HTN (hypertension) Colon cancer Mother HTN (hypertension) Diabetes mellitus Mental health disorder Brother Parkinson disease Sister Depression Mental health disorder Brother No problems noted. Brother No problems noted. Maternal Grandfather Tuberculosis Maternal Grandmother Diabetes mellitus Liver problem Paternal Grandfather Unknown family medical history Paternal Grandmother Unknown family medical history Social History Housing: Apartment Alcohol intake: current Alcohol intake frequency: a few times a month Patient Tobacco Use Status: Never used Tobacco e-Cigarette/Vaping Use: Never Used service: No Current occupational status: employed Cognitive needs: No Hearing needs: No Vision needs: Yes Social History: lives alone; has good friends; close with sister; has Associates degree. 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
== END 2024-08-06 16:49 | disposition home or self-care (01) ==
LOC: HO.HOP 15:47
PROVIDERS: PCP Internal Medicine; Visit Provider Clinical Nurse Specialist Psychiatric/Mental Health
DX: F90.0 Attention-deficit hyperactivity disorder, predominantly inattentive type (principal)
CPT/HCPCS: 90792

== ENCOUNTER → 2024-08-06 15:47 | Outpatient (BNVA) | payer OTHER, SELFPAY | PROVIDERS: PCP Internal Medicine; Visit Provider Clinical Nurse Specialist Psychiatric/Mental Health | DX: F90.0 Attention-deficit hyperactivity disorder, predominantly inattentive type (principal) | CPT/HCPCS: 90792 ==

== ENCOUNTER 2024-09-03 15:53 | Outpatient (AMB) | payer OTHER, SELFPAY ==
--- NOTE | 2024-09-03 16:21 | A.OFFPSYCH_ITS ---
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 pt stopped it as instructed. she reports continued ADHD symptoms and would like to try an alternative. We discussed ritalin and adderall as options; pt would like to try adderall. No SI no HI ; no EKG on record. Past Psychiatric History: no IPLOC; no past tx of ADHD. has been on paxil and prozac in past for anxiety but not much help Subjective Subjective Subjective Medication Compliance: Yes Side effects from medications: No Review of Systems Medical Review of Systems: unchanged Mental Status Exam Mental Status Exam Patient Appearance: Well Grooomed and Appropriate Patient Orientation: Person, Place, Time and Situation Level of Consciousness: Awake and Appropriate Patient Behavior: Appropriate and Cooperative Mood Description: Appropriate and Anxious Affect Description: Anxious Patient Cognition Impaired: No Ability to Follow Directions: Good Speech Pattern: Clear and Appropriate Memory Description: Intact Hallucinations: None Delusions: Not Present Thought Process: Intact and Distracted Thought Content: positive for Intact Judgement: Good Assessment and Plan Assessment & Plan (1) ADHD, predominantly inattentive type: Status: Acute Code(s): F90.0 - Attention-deficit hyperactivity disorder, predominantly inattentive type Plan stop wellbutrin adderall 10mg tablets try 1/2 tab of adderall bid 4 hours apart may increase to 10mg BID and if needed upt to 15mg_20 mg BID EKG ordered due to hx palpitaitons Medications: New dextroamphetamine-amphetamine 10 mg (Adderall) administer doses at least 4-6 hours apart; Partial Fill upon patient request. 10 mg PO BID 60 tabs 0RF Discontinued bupropion HCl XL (Wellbutrin XL) Discontinued Reason: No Longer Medically Relevant 150 mg PO QAM 30 tabs 0RF Orders: Orders ECG 12 lead EKG Today F90.0 - Attention-deficit hyperactivity disorder, predominantly inattentive type Counseling and coordination of Care Pt. Self Management counseling: Sleep hygiene, Behavior activation, General coping skills and Problem solving Medication management counseling: Effectiveness, Side effects, Dosing range, Duration, Drug interaction and Adherence Diagnosis and Prognosis Counseling: Accuracy of diagnosis, Prognosis over time and Adequacy of current interventions Details: I spent 35 minutes reviewing the record, seeing the patient and documenting in the medical record. Counseling provided to the patient/caregiver as outlined below. Addressed patient/caregiver concerns regarding current medication regime including effective adherence. Addressed patient/caregiver concerns regarding diagnosis and prognosis including accuracy of diagnosis, prognosis over time, impact of diagnosis. Addressed patient/caregiver concerns regarding impact of recent stressors. [facility] Medical History (Updated 08/06/24 @ 17:07 by Yesenia Uribe APRN) Colon cancer screening Reactive airway disease with wheezing Irregular menstrual cycle Anemia NATALIA on CPAP Hx of deep venous thrombosis Right leg DVT Impaired fasting glucose Lateral epicondylitis of left elbow Normal Pap smear Obesity Varicose veins of right lower extremity Mild intermittent asthma Obstructive sleep apnea on CPAP Depression with anxiety Urinary, incontinence, stress female Surgical History History of open reduction and internal fixation (ORIF) procedure Family History Father HTN (hypertension) Colon cancer Mother HTN (hypertension) Diabetes mellitus Mental health disorder Brother Parkinson disease Sister Depression Mental health disorder Brother No problems noted. Brother No problems noted. Maternal Grandfather Tuberculosis Maternal Grandmother Diabetes mellitus Liver problem Paternal Grandfather Unknown family medical history Paternal Grandmother Unknown family medical history Social History Housing: Apartment Alcohol intake: current Alcohol intake frequency: a few times a month Patient Tobacco Use Status: Never used Tobacco e-Cigarette/Vaping Use: Never Used service: No Current occupational status: employed Cognitive needs: No Hearing needs: No Vision needs: Yes Social History: lives alone; has good friends; close with sister; has Associates degree. 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
== END 2024-09-03 16:37 | disposition home or self-care (01) ==
LOC: HO.HOP 15:53
PROVIDERS: PCP Internal Medicine; Visit Provider Clinical Nurse Specialist Psychiatric/Mental Health
DX: F90.0 Attention-deficit hyperactivity disorder, predominantly inattentive type (principal)
CPT/HCPCS: 99214

== ENCOUNTER → 2024-09-03 15:53 | Outpatient (BNVA) | payer OTHER, SELFPAY | PROVIDERS: PCP Internal Medicine; Visit Provider Clinical Nurse Specialist Psychiatric/Mental Health ==

== ENCOUNTER → 2024-09-24 15:19 | Outpatient (REF) | payer OTHER, SELFPAY ==
--- NOTE | 2024-09-24 15:31 | ECG_ITS ---
Test Reason : f90.0 Blood Pressure : / mmHG Vent. Rate : 096 BPM Atrial Rate : 096 BPM P-R Int : 136 ms QRS Dur : 070 ms QT Int : 324 ms P-R-T Axes : 062 -25 029 degrees QTc Int : 409 ms Normal sinus rhythm Inferior infarct , age undetermined Abnormal ECG No previous ECGs available Referred By: Yesenia Uribe Electronically Signed By:BERNA PENG MD
== END ==
LOC: HO.CARD 15:19
PROVIDERS: PCP Internal Medicine; Visit Provider Clinical Nurse Specialist Psychiatric/Mental Health
DX: F90.0 Attention-deficit hyperactivity disorder, predominantly inattentive type (principal)
CPT/HCPCS: 93005

== ENCOUNTER → 2024-09-24 15:31 | Outpatient (BNV) | payer OTHER, SELFPAY | PROVIDERS: PCP Internal Medicine; Visit Provider Internal Medicine Cardiovascular Disease | DX: R94.31 Abnormal electrocardiogram [ECG] [EKG] (principal) | CPT/HCPCS: 93010 ==

== ENCOUNTER 2024-09-24 15:52 | Outpatient (AMB) | payer OTHER, SELFPAY ==
--- NOTE | 2024-09-24 16:48 | MHC.OFFVISPS ---
Intake Intake Visit Reasons: f/u consultation Allergies tuberculin,PPD,multi-puncture Allergy (Unknown, Verified 06/13/24 17:12) reash ppd Allergy (Unknown, Uncoded 06/13/24 17:12) Rash Medication List - Last Reconciled 09/24/24 by Yesenia Uribe APRN albuterol sulfate 90 mcg/actuation 2 puffs inhalation Q6H PRN dextroamphetamine-amphetamine 10 mg (Adderall) 10 mg PO BID naproxen 500 mg PO BID PRN 10 days HPI- Psychiatric Chief Complaint: f/u consultation HPI Narrative: pt seen for ADHD and JULIO C follow up; pt feels much releif re: ADHD sympoms; she is now more aware of her worry and willing to try a low dose of zoloft PHQ9= 7 GAD7= 5. Pt started adderall 10mg tablets- reports good response; improved functioning at home and work; less distracted; co-owrkers have noticed and responded positively. no side effects. EKG normal sinus Past Psychiatric History: no IPLOC; no past tx of ADHD. has been on paxil and prozac in past for anxiety but not much help Subjective Subjective Subjective Medication Compliance: Yes Side effects from medications: No Review of Systems Medical Review of Systems: unchanged Mental Status Exam Mental Status Exam Patient Appearance: Well Grooomed and Appropriate Patient Orientation: Person, Place and Time Level of Consciousness: Awake, Appropriate and Alert Patient Behavior: Appropriate and Good Eye Contact Mood Description: Happy Affect Description: Happy Patient Cognition Impaired: No Ability to Follow Directions: Good Speech Pattern: Clear and Coherent Memory Description: Intact Hallucinations: None Delusions: Not Present Thought Process: Intact and Goal Oriented Thought Content: positive for Intact and positive for Goal Oriented Judgement: Good Assessment and Plan Assessment & Plan (1) ADHD, predominantly inattentive type: Status: Acute Code(s): F90.0 - Attention-deficit hyperactivity disorder, predominantly inattentive type (2) Depression with anxiety: Status: Acute Code(s): F41.8 - Other specified anxiety disorders Plan add sertraline for anxiety Medications: New sertraline (Zoloft) 25 mg PO DAILY 30 tabs 1RF Refilled dextroamphetamine-amphetamine 10 mg (Adderall) administer doses at least 4-6 hours apart; Partial Fill upon patient request. 10 mg PO BID 60 tabs 0RF Counseling and coordination of Care Pt. Self Management counseling: Exercise, Maintenance-social rhythm, Mod caffeine/ETOH intake, Nutrition education and improvement, Sleep hygiene, Behavior activation and General coping skills Medication management counseling: Effectiveness, Side effects, Dosing range, Duration, Drug interaction and Adherence Diagnosis and Prognosis Counseling: Accuracy of diagnosis, Prognosis over time, Impact of diagnosis on life functions, Impact of family relationship, Problematic behaviors secondary to diagnosis and Adequacy of current interventions Details: I spent [] minutes reviewing the record, seeing the patient and documenting in the medical record. Counseling provided to the patient/caregiver as outlined below. Addressed patient/caregiver concerns regarding current medication regime including effective adherence. Addressed patient/caregiver concerns regarding diagnosis and prognosis including accuracy of diagnosis, prognosis over time, impact of diagnosis. Addressed patient/caregiver concerns regarding impact of recent stressors. [facility] Medical History (Updated 09/03/24 @ 16:40 by Yesenia Uribe APRN) Colon cancer screening Reactive airway disease with wheezing Irregular menstrual cycle Anemia NATALIA on CPAP Hx of deep venous thrombosis Right leg DVT Impaired fasting glucose Lateral epicondylitis of left elbow Normal Pap smear Obesity Varicose veins of right lower extremity Mild intermittent asthma Obstructive sleep apnea on CPAP Depression with anxiety Urinary, incontinence, stress female Surgical History History of open reduction and internal fixation (ORIF) procedure Family History Father HTN (hypertension) Colon cancer Mother HTN (hypertension) Diabetes mellitus Mental health disorder Brother Parkinson disease Sister Depression Mental health disorder Brother No problems noted. Brother No problems noted. Maternal Grandfather Tuberculosis Maternal Grandmother Diabetes mellitus Liver problem Paternal Grandfather Unknown family medical history Paternal Grandmother Unknown family medical history Social History Housing: Apartment Alcohol intake: current Alcohol intake frequency: a few times a month Patient Tobacco Use Status: Never used Tobacco e-Cigarette/Vaping Use: Never Used service: No Current occupational status: employed Cognitive needs: No Hearing needs: No Vision needs: Yes Social History: lives alone; has good friends; close with sister; has Associates degree. 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
== END 2024-09-24 16:57 | disposition home or self-care (01) ==
LOC: HO.HOP 15:52
PROVIDERS: PCP Internal Medicine; Visit Provider Clinical Nurse Specialist Psychiatric/Mental Health
DX: F90.0 Attention-deficit hyperactivity disorder, predominantly inattentive type (principal); F41.8 Other specified anxiety disorders
CPT/HCPCS: 99214

== ENCOUNTER 2024-11-05 22:25 | Outpatient (AMB) | payer OTHER, SELFPAY ==
--- NOTE | 2024-11-05 16:42 | A.OFFPSYCH_ITS ---
Intake Intake Visit Reasons: f/u consultation Steam Trap Man Required: No Allergies tuberculin,PPD,multi-puncture Allergy (Unknown, Verified 06/13/24 17:12) reash ppd Allergy (Unknown, Uncoded 06/13/24 17:12) Rash Medication List - Last Reconciled 11/05/24 by Yesenia Uribe APRN albuterol sulfate 90 mcg/actuation 2 puffs inhalation Q6H PRN dextroamphetamine-amphetamine 10 mg (Adderall) 10 mg PO BID naproxen 500 mg PO BID PRN 10 days sertraline (Zoloft) 25 mg PO DAILY HPI- Psychiatric Chief Complaint: f/u consultation HPI Narrative: pt reports much improvement; she reports medication is helping her ADHD symptoms and lowering her anxiety; she says she has gotten good feedback at work; she is sleeping well; she does notice reduced appetite but still eats 3 meals a day. she has lost approximately 10 pounds but is still withinn healthy weight. she denies other side effects; her PHQ9= 9 and her GAD7= 4. Past Psychiatric History: no IPLOC; no past tx of ADHD. has been on paxil and prozac in past for anxiety but not much help Subjective Subjective Subjective Medication Compliance: Yes Side effects from medications: No Review of Systems Medical Review of Systems: unchanged Mental Status Exam Mental Status Exam Patient Appearance: Well Grooomed Patient Orientation: Person, Place, Time and Situation Level of Consciousness: Awake, Appropriate and Alert Patient Behavior: Appropriate and Cooperative Mood Description: Calm and Happy Affect Description: Calm and Happy Patient Cognition Impaired: No Ability to Follow Directions: Good Speech Pattern: Clear Memory Description: Intact Hallucinations: None Delusions: Not Present Thought Process: Intact and Goal Oriented Thought Content: positive for Intact and positive for Goal Oriented Judgement: Good Assessment and Plan Assessment & Plan (1) ADHD, predominantly inattentive type: Status: Acute Code(s): F90.0 - Attention-deficit hyperactivity disorder, predominantly inattentive type (2) Depression with anxiety: Status: Acute Code(s): F41.8 - Other specified anxiety disorders Plan continue medications as is retrun in 2 months and if still stable will then follow up with PCP Medications: Refilled sertraline (Zoloft) 25 mg PO DAILY 30 tabs 1RF dextroamphetamine-amphetamine 10 mg (Adderall) administer doses at least 4-6 hours apart; Partial Fill upon patient request. 10 mg PO BID 60 tabs 0RF Counseling and coordination of Care Pt. Self Management counseling: Maintenance-social rhythm, Mod caffeine/ETOH intake, Nutrition education and improvement, Sleep hygiene, Behavior activation, General coping skills and Problem solving Medication management counseling: Effectiveness, Side effects, Dosing range, Duration, Drug interaction and Adherence Diagnosis and Prognosis Counseling: Accuracy of diagnosis, Prognosis over time, Impact of diagnosis on life functions, Impact of family relationship, Problematic behaviors secondary to diagnosis and Adequacy of current interventions Details: I spent 35 minutes reviewing the record, seeing the patient and documenting in the medical record. Counseling provided to the patient/caregiver as outlined below. Addressed patient/caregiver concerns regarding current medication regime including effective adherence. Addressed patient/caregiver concerns regarding diagnosis and prognosis including accuracy of diagnosis, prognosis over time, impact of diagnosis. Addressed patient/caregiver concerns regarding impact of recent stressors. [facility] Medical History (Updated 09/03/24 @ 16:40 by Yesenia Uribe APRN) Colon cancer screening Reactive airway disease with wheezing Irregular menstrual cycle Anemia NATALIA on CPAP Hx of deep venous thrombosis Right leg DVT Impaired fasting glucose Lateral epicondylitis of left elbow Normal Pap smear Obesity Varicose veins of right lower extremity Mild intermittent asthma Obstructive sleep apnea on CPAP Depression with anxiety Urinary, incontinence, stress female Surgical History History of open reduction and internal fixation (ORIF) procedure Family History Father HTN (hypertension) Colon cancer Mother HTN (hypertension) Diabetes mellitus Mental health disorder Brother Parkinson disease Sister Depression Mental health disorder Brother No problems noted. Brother No problems noted. Maternal Grandfather Tuberculosis Maternal Grandmother Diabetes mellitus Liver problem Paternal Grandfather Unknown family medical history Paternal Grandmother Unknown family medical history Social History Housing: Apartment Alcohol intake: current Alcohol intake frequency: a few times a month Patient Tobacco Use Status: Never used Tobacco e-Cigarette/Vaping Use: Never Used service: No Current occupational status: employed Cognitive needs: No Hearing needs: No Vision needs: Yes Social History: lives alone; has good friends; close with sister; has Associates degree. 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
== END 2024-11-05 22:25 | disposition home or self-care (01) ==
LOC: HO.HOP 22:25
PROVIDERS: PCP Internal Medicine; Visit Provider Clinical Nurse Specialist Psychiatric/Mental Health
DX: F90.0 Attention-deficit hyperactivity disorder, predominantly inattentive type (principal); F41.8 Other specified anxiety disorders
CPT/HCPCS: 99214

== ENCOUNTER → 2024-11-05 22:25 | Outpatient (BNVA) | payer OTHER, SELFPAY | PROVIDERS: PCP Internal Medicine; Visit Provider Clinical Nurse Specialist Psychiatric/Mental Health ==

== ENCOUNTER 2025-01-24 16:39 | Outpatient (AMB) | payer OTHER, SELFPAY ==
--- NOTE | 2025-01-24 17:02 | MHC.OFFVISPS ---
Intake Intake Visit Reasons: f/u consultation Inspector Type Required: No Allergies tuberculin,PPD,multi-puncture Allergy (Unknown, Verified 06/13/24 17:12) reash ppd Allergy (Unknown, Uncoded 06/13/24 17:12) Rash Medication List - Last Reconciled 01/24/25 by Yesenia Uribe APRN albuterol sulfate 90 mcg/actuation 2 puffs inhalation Q6H PRN dextroamphetamine-amphetamine 10 mg (Adderall) 10 mg PO BID naproxen 500 mg PO BID PRN 10 days sertraline 25 mg PO DAILY HPI- Psychiatric Chief Complaint: f/u consultation HPI Narrative: pt here for follow up re: anxiety and ADHD pt reports much improved. No sode effects; functioning is much better sleep and appetite intact Past Psychiatric History: no IPLOC; no past tx of ADHD. has been on paxil and prozac in past for anxiety but not much help Subjective Subjective Subjective Medication Compliance: Yes Side effects from medications: No Review of Systems Medical Review of Systems: unchanged Mental Status Exam Mental Status Exam Patient Appearance: Well Grooomed Patient Orientation: Person, Place, Time and Situation Level of Consciousness: Awake and Appropriate Patient Behavior: Appropriate Mood Description: Calm and Happy Affect Description: Happy Patient Cognition Impaired: No Ability to Follow Directions: Good Speech Pattern: Clear Memory Description: Intact Hallucinations: None Delusions: Not Present Thought Process: Intact and Goal Oriented Thought Content: positive for Intact and positive for Goal Oriented Judgement: Fair Assessment and Plan Assessment & Plan (1) ADHD, predominantly inattentive type: Status: Acute Code(s): F90.0 - Attention-deficit hyperactivity disorder, predominantly inattentive type (2) JULIO C (generalized anxiety disorder): Status: Acute Code(s): F41.1 - Generalized anxiety disorder Medications: Refilled dextroamphetamine-amphetamine 10 mg (Adderall) administer doses at least 4-6 hours apart; Partial Fill upon patient request. 10 mg PO BID 60 tabs 0RF sertraline 25 mg PO DAILY 90 tabs 2RF Counseling and coordination of Care Medication management counseling: Effectiveness, Side effects, Dosing range, Duration, Drug interaction and Adherence Diagnosis and Prognosis Counseling: Accuracy of diagnosis, Prognosis over time, Impact of diagnosis on life functions, Problematic behaviors secondary to diagnosis and Adequacy of current interventions Details: I spent 35 minutes reviewing the record, seeing the patient and documenting in the medical record. Counseling provided to the patient/caregiver as outlined below. Addressed patient/caregiver concerns regarding current medication regime including effective adherence. Addressed patient/caregiver concerns regarding diagnosis and prognosis including accuracy of diagnosis, prognosis over time, impact of diagnosis. Addressed patient/caregiver concerns regarding impact of recent stressors. [facility]LY [facility] Medical History (Updated 01/25/25 @ 15:59 by Yesenia Uribe APRN) Colon cancer screening Reactive airway disease with wheezing Irregular menstrual cycle Anemia NATALIA on CPAP Hx of deep venous thrombosis Right leg DVT Impaired fasting glucose Lateral epicondylitis of left elbow Normal Pap smear Obesity Varicose veins of right lower extremity Mild intermittent asthma Obstructive sleep apnea on CPAP Depression with anxiety Urinary, incontinence, stress female Surgical History History of open reduction and internal fixation (ORIF) procedure Family History Father HTN (hypertension) Colon cancer Mother HTN (hypertension) Diabetes mellitus Mental health disorder Brother Parkinson disease Sister Depression Mental health disorder Brother No problems noted. Brother No problems noted. Maternal Grandfather Tuberculosis Maternal Grandmother Diabetes mellitus Liver problem Paternal Grandfather Unknown family medical history Paternal Grandmother Unknown family medical history Social History Housing: Apartment Alcohol intake: current Alcohol intake frequency: a few times a month Patient Tobacco Use Status: Never used Tobacco e-Cigarette/Vaping Use: Never Used service: No Current occupational status: employed Cognitive needs: No Hearing needs: No Vision needs: Yes Social History: lives alone; has good friends; close with sister; has Associates degree. 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
--- OUTSIDE RECORDS SUMMARY | 2025-01-24 17:47 | XMS_ITS | Clinical Summary ---
Author Organization [facility] Address [address] [place] [address] Care Team Providers Care Boat Oar Maker Name Role Phone Unavailable Primary Care Provider Unavailabl e Allergies No known active allergies Medications No known medications Active Problems No known active problems Immunizations Name Administration Dates Next Due Influenza injectable quadriv alent IIV4 with preservative 06/23/2019,06/05/2018,07/11/2017 Influenza injectable quadriv alent preservative free 10/03/2022,06/05/2020 Influenza, IIV3, injectable 07/12/2016 Influenza, seasonal, injecta ble, preservative free 06/03/2024 MMR 09/17/2023,08/20/2023 Pfizer Covid-19 Vaccine 12+ 08/13/2024 Tdap 07/16/2023 Social History Tobacco Use Types Packs/Day Years Used Date Smoking Tobacco: Never Smokeless Tobacco: Never Tobacco Cessation:Counseling Given: Not Answered Comments Unknown Sex and Gender Information Value Date Recorded Sex Assigned at Female 11/17/2023 10:37 AM EST Legal Sex Female 10:36 AM EST Gender Identity Female 11/17/2023 10:37 AM EST Sexual Orientation Straight 11/17/2023 10 :37 AM EST Plan of Treatment Health Maintenance Due Date Last Done Comments CT Colonography 1978 Colonoscopy 1978 Colorectal Cancer Screening 1978 Depression Screening 1978 FIT DNA/Cologuard 1978 FIT 1978 FOBT 1978 HIV Screening 1978 SDOH Screening 1978 Sigmoidoscopy 1978 Alcohol/Substance Use Screening 1990 Family Planning (PISQ) 1993 Hepatitis C Screening 1996 Hepatitis B Vaccines (1 of 3 - 19+ 3-dose series) 1997 Pap Smear 1999 Cervical Cancer Screening 2008 HPV/Cotest 2008 Mammogram 2018 Tobacco Screening 11/18/2024 11/18/2023 Zoster Vaccines (1 of 2) 2028 DTaP/Tdap/Td Vaccines (2 - Td or Tdap) 07/16/2033 07/16/2023 RSV Patients and Patients Aged 60 years or older (1 - 1-dose 75+ series) 2053 Influenza Vaccine Completed 06/03/2024, , 06/05/2020, Additional history exists COVID-19 Vaccine Completed 08/13/2024, , 07/18/2021, Additional history exists HIB Vaccines Aged Out No longer eligi ble based on patient's age to complete this topic HPV Vaccines Aged Out No longer eligi ble based on patient's age to complete this topic Hepatitis A Vaccines Aged Out No long er eligible based on patient's age to complete this topic IPV Vaccines Aged Out No longer eligi ble based on patient's age to complete this topic Meningococcal Vaccine Aged Out No tony tigist eligible based on patient's age to complete this topic Pneumococcal Vaccine: Pediatrics (0 to 5 Years) and At-Risk Patients (6 to 49) Years) Aged Out No longer eligible based on patient's age to complete this topic RSV under 20 months Aged Out No longe r eligible based on patient's age to complete this topic Rotavirus Vaccines Aged Out No longer eligible based on patient's age to complete this topic Insurance , [address] [place] [address]
== END 2025-01-24 17:09 | disposition home or self-care (01) ==
LOC: HO.HOP 16:39
PROVIDERS: PCP Internal Medicine; Visit Provider Clinical Nurse Specialist Psychiatric/Mental Health
DX: F90.0 Attention-deficit hyperactivity disorder, predominantly inattentive type (principal); F41.1 Generalized anxiety disorder
CPT/HCPCS: 99214

== ENCOUNTER → 2025-01-24 16:39 | Outpatient (BNVA) | payer OTHER, SELFPAY | PROVIDERS: PCP Internal Medicine; Visit Provider Clinical Nurse Specialist Psychiatric/Mental Health ==

== ENCOUNTER 2025-02-21 13:20 | Outpatient (AMB) | payer OTHER, SELFPAY ==
--- NOTE | 2025-02-21 13:24 | MHC.OFFVIS ---
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 Patient reports she slipped and fell on ice. She states that she hears a clicking sound. Patient notices swelling around the ankle. She mentions that her pain is worse along side the lateral aspect of the ankle/foot and it gets worse with movement. Patient has taken ibuprofen, lidocane patches, and dyclofinac sodum mild relief. IMPRESSION: 1. Mild degenerative changes first metatarsophalangeal joint. 2. Mild hypertrophic change along the dorsal aspect of the calcaneus. 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 Sierra is a 44-year-old female who presents to the office today for evaluation of a right ankle sprain that she sustained on 11/11/2024 when she slipped and fell on ice. Initially, she reports that she did not receive any x-rays or treatment as she thought this was an ankle sprain. She eventually was seen at an urgent care in December where she did have an x-ray of the left foot and was negative for any acute fracture dislocation. She was given an ankle stirrup. She has continued to have ongoing lingering right ankle pain and therefore decided to follow up with orthopedics. Of note, the patient has tried an ankle brace an ankle sleeve and the ankle stirrup. [facility] Medical History (Updated 02/21/25 @ 14:18 by Lynnette Cazares PA-C) Colon cancer screening Reactive airway disease with wheezing Irregular menstrual cycle Anemia NATALIA on CPAP Hx of deep venous thrombosis Right leg DVT Impaired fasting glucose Lateral epicondylitis of left elbow Normal Pap smear Obesity Varicose veins of right lower extremity Mild intermittent asthma Obstructive sleep apnea on CPAP Depression with anxiety Urinary, incontinence, stress female Surgical History History of open reduction and internal fixation (ORIF) procedure Family History Father HTN (hypertension) Colon cancer Mother HTN (hypertension) Diabetes mellitus Mental health disorder Brother Parkinson disease Sister Depression Mental health disorder Brother No problems noted. Brother No problems noted. 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 Slight tenderness to palpation over the both medial and lateral malleolus. Tenderness over the ATFL. Able to demonstrate full dorsiflexion, plantar flexion, pronation and supination. Sensation is intact. Pedal pulse intact Assessment & Plan Assessment & Plan (1) Right ankle sprain: Code(s): S93.401A - Sprain of unspecified ligament of right ankle, initial encounter Category: Medical Plan Ms. Sierra is a 44-year-old female who presents to the office today for evaluation of a right ankle sprain that she sustained on 11/11/2024 when she slipped and fell on ice. Initially, she reports that she did not receive any x-rays or treatment as she thought this was an ankle sprain. She eventually was seen at an urgent care in December where she did have an x-ray of the left foot and was negative for any acute fracture dislocation. She was given an ankle stirrup. She has continued to have ongoing lingering right ankle pain and therefore decided to follow up with orthopedics. Of note, the patient has tried an ankle brace an ankle sleeve and the ankle stirrup. While the office today, I provided the patient with a lace-up ankle brace off the shelf. She will be referred to physical therapy to work on ankle modalities. Should she continue to have pain and swelling over the next 6 weeks would consider MRI imaging at that point. In the meantime I have also recommended supportive walking shoes that lace-up. She is currently presenting to the office today in [facility]. Additionally, she should continue resting, NSAIDs, ice, compression and elevation. She will follow up in 6 weeks, sooner if needed. X-rays of the right ankle which were obtained while in the office today and were reviewed by me, Lynnette Cazares PA-C, revealed no acute fracture dislocation. Orders: Orders XR ankle RT min 3V Today M25.579 - Pain in unspecified ankle and joints of unspecified foot PT Evaluation and Treatment Today S93.401A - Sprain of unspecified ligament of right ankle, initial encounter Coding Level of Care Code New Pt Level 3 (56053) Diagnoses Right ankle sprain S93.401A
[2025-02-21 13:30] VITALS: BMI 36.6
--- OUTSIDE RECORDS SUMMARY | 2025-02-21 14:25 | XMS_ITS | Clinical Summary ---
Author Organization [employer] Address [address] [facility] [address] [place] [address] Care Team Providers Care Automobile Brakes Bonder Name Role Phone Unavailable Primary Care Provider Unavailabl e Allergies No known active allergies Medications No known medications Active Problems No known active problems Immunizations Immunization Administration Dates Next Due Influenza injectable quadriv [...] Screening 1978 SDOH Screening 1978 Sigmoidoscopy 1978 Disability Screening 1978 Alcohol/Substance Use Screening 1990 Family Planning [...] patient's age to complete this topic Meningococcal B Vaccine Aged Out No l onger eligible based on patient's age to complete [...] patient's age to complete this topic [place] [address] [place] [address] , [address] [place] [address]
== END 2025-02-21 14:18 | disposition home or self-care (01) ==
LOC: HO.HOS 13:21
PROVIDERS: PCP Internal Medicine; Visit Provider Physician Assistant
DX: S93.401A Sprain of unspecified ligament of right ankle, initial encounter (principal)
CPT/HCPCS: 99203

== ENCOUNTER 2025-02-21 13:20 | Outpatient (REF) | payer OTHER, SELFPAY ==
--- NOTE | ~2025-02-21 | XR_ITS ---
EXAMINATION: XR ANKLE 3 OR MORE VIEWS RIGHT HISTORY: M25.579 - Pain in unspecified ankle and joints of unspecified foot COMPARISON: There are no prior studies available for comparison. FINDINGS: Three views of the right ankle are submitted. Osseous mineralization is normal. There is no fracture or dislocation. The joint spaces are preserved. The soft tissues are unremarkable. XR/XR ankle RT min 3V IMPRESSION: Unremarkable examination of the right ankle. Electronically signed by: Jas Lopez MD 02/21/2025 03:29 PM EDT
== END 2025-02-21 13:21 | disposition home or self-care (01) ==
LOC: HO.HOSX 13:20
PROVIDERS: PCP Internal Medicine; Visit Provider Physician Assistant
DX: S93.401A Sprain of unspecified ligament of right ankle, initial encounter (principal)
CPT/HCPCS: 73610

== ENCOUNTER → 2025-02-21 13:38 | Outpatient (BNV) | payer OTHER, SELFPAY | PROVIDERS: PCP Internal Medicine; Visit Provider Radiology Diagnostic Radiology | DX: M25.571 Pain in right ankle and joints of right foot (principal) | CPT/HCPCS: 73610 ==

== ENCOUNTER 2025-03-08 09:42 | Outpatient (REF) | payer OTHER, SELFPAY ==
[2025-03-14 09:44] LABS: HPV Genotype 16 Negative (Negative); HPV Genotype 18 Negative (Negative); HPV High Risk Negative (Negative)
== END 2025-03-08 09:43 | disposition home or self-care (01) ==
LOC: HO.LNP 09:42
PROVIDERS: PCP Internal Medicine; Visit Provider Advanced Practice Midwife
DX: Z01.419 Encounter for gynecological examination (general) (routine) without abnormal findings (principal)
CPT/HCPCS: 87626; 88175

== ENCOUNTER 2025-03-08 09:42 | Outpatient (AMB) | payer OTHER, SELFPAY ==
--- NOTE | 2025-03-08 09:44 | MHC.OFFVIS ---
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 Doing well with risk engineer concerns: Perimenopausal symptoms-skips menses a few months. Hair loss and facial hair growth. Currently is sexually active in many years. She denies vaginal itching or irritation. STI screening offered; she declines. She tries to eat healthy and stays active with exercise. Denies family history of breast, ovarian or colon cancer. Last pap smear 2017, negative. Mammogram: 2019. [facility] Medical History Colon cancer screening Reactive airway disease with wheezing Irregular menstrual cycle Anemia NATALIA on CPAP Hx of deep venous thrombosis Right leg DVT Impaired fasting glucose Lateral epicondylitis of left elbow Normal Pap smear Obesity Varicose veins of right lower extremity Mild intermittent asthma Obstructive sleep apnea on CPAP Depression with anxiety Urinary, incontinence, stress female Surgical History History of open reduction and internal fixation (ORIF) procedure Family History Father HTN (hypertension) Colon cancer Mother HTN (hypertension) Diabetes mellitus Mental health disorder Brother Parkinson disease Sister Depression Mental health disorder Brother No problems noted. Brother No problems noted. 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 needs: No Hearing needs: No Vision needs: Yes Female Reproductive History Menstrual Duration of menses: 3-5 days Date of last menstrual period: 02/20/25 control method: none Total pregnancies: 0 Date of last pap smear: 04/21/18 (neg) Date of Mammogram: 07/09/24 (Birad 1) Review of Systems Const All systems reviewed & are unremarkable except as noted in HPI and below Reports as per HPI Eyes Reports no additional complaints ENT Reports no additional complaints Card Reports no additional complaints Resp Reports no additional complaints GI Reports as per HPI and Reports no additional complaints Reports as per HPI Musc Reports no additional complaints Skin/Breast Reports as per HPI Neuro Reports no additional complaints Psych Reports no additional complaints Endo Reports no additional complaints Abhinav/Lymph Reports no additional complaints Aller/Immun Reports no additional complaints Physical Exam Vital Signs: Last Vital Signs BP 112/76 03/08/25 09:45 BMI result Body Mass Index 36.4 Const General: cooperative, healthy appearing, no acute distress, well developed and alert Orientation/consciousness: patient oriented x3 HEENT Head: Yes normal to inspection Eyes General: appearance normal, both eyes and all related structures Neck Neck: Yes normal visual inspection Thyroid: Thyroid normal Chest Chest palpation & inspection: normal inspection of the chest and other (no puckering, dimpling, peau de orange, retraction, discharge, masses) Breast/axilla inspection: normal inspection of the breasts Breast/axilla palpation: normal palpation of the breasts Resp Effort & Inspection: normal respiratory effort GI Inspection: Yes normal to inspection Palpation (GI): Soft to palpation Rectal Exam - Female: deferred General: Yes bladder normal to palpation External Female Exam: normal external appearance and normal appearance of the urethra Speculum Exam - Vagina: normal appearance of the vagina, normal palpation and normal vaginal discharge Speculum Exam - Cervix: normal palpation and Other cervical findings present (bled w/pap) Bimanual exam- vagina & uterus: normal bimanual exam, normal palpation, uterine size normal, bladder normal to palpation, normal palpation and non-tender Bimanual Exam- Adnexa, other: no masses Skin General skin exam: no rashes or lesions noted Rashes: no rashes Neuro General: patient oriented x3 Cognition (Neuro): normal cognition Extrem General: Yes normal to inspection Psych Attitude: cooperative Thought process: Normal thought process present Assessment & Plan Assessment & Plan (1) Encounter for well woman exam with routine gynecological exam: Code(s): Z01.419 - Encounter for gynecological examination (general) (routine) without abnormal findings Category: Medical Plan Discussed: Current recommendations for pap smears per ASCCP guidelines. Pap obtained. Breast awareness and periodic breast exams. Mammogram yearly. Maintain a healthy lifestyle including a well balanced diet and routine exercise. Use condoms for STI and prevention. Menopause verses perimenopause. Menopause is definitive of 1 year of no menses or 12 months in succession. Report any abnormal uterine bleeding in example prolonged episodes, or short intervals less than 24 days. Menopause.org information for review. Follow up for consult to call for appointment. Comment self-help information. Patient verbalizes understanding and agrees to the plan of care. She was given opportunity to ask questions and all questions were answered to the best of my ability. RTO in one year for annual risk engineer examination. This note is constructed using voice recognition software. While every effort has been made to ensure accuracy, resource conservation specialist errors may have been included. Orders: Orders HPV High risk Today Z01.419 - Encounter for gynecological examination (general) (routine) without abnormal findings Pap Smear Today Z01.419 - Encounter for gynecological examination (general) (routine) without abnormal findings Coding Level of Care Code New Pt Prev Care 40-64y(90196) Diagnoses Encounter for well woman exam with routine gynecological exam Z01.419
[2025-03-08 09:45] VITALS: BP 112/76; BMI 36.4
--- OUTSIDE RECORDS SUMMARY | 2025-03-08 10:42 | XMS_ITS | Clinical Summary ---
Author Organization [employer] Address 75 [facility] 7 [place] [address] Care Team Providers Care Clinical Research Analyst Name Role Phone Unavailable Primary Care Provider [...] 10 :37 AM EST Plan of Treatment Upcoming Encounters Date Type Department Care Team (Late st Contact Info) Description 07/13/2025 9:00 AM EDT Office Visit [facility] OPTOMETRY [address] [place] [address] BertrandCalista jeter, OD [address] [place] [address] Health Maintenance Due Date Last Done Comments [...] Years) and At-Risk Patients (6 to 49) Years Aged Out No longer eligible based on patient's age to complete this topic RSV under 20 months Aged Out No longe r eligible based on patient's age to complete this topic Rotavirus Vaccines Aged Out No longer eligible based on patient's age to complete this topic Insurance * Guarantor: Olivia Sierra Account Type Relation to Patient Date of Phone Billing Address Personal/Family Self [address] [place] [address]
== END 2025-03-08 10:19 | disposition home or self-care (01) ==
LOC: HO.HWS 09:42
PROVIDERS: PCP Internal Medicine; Visit Provider Advanced Practice Midwife
DX: Z01.419 Encounter for gynecological examination (general) (routine) without abnormal findings (principal)
CPT/HCPCS: 99386; 99459

== ENCOUNTER 2025-04-14 14:08 | Outpatient (AMB) | payer OTHER, SELFPAY ==
--- OUTSIDE RECORDS SUMMARY | 2025-04-14 14:12 | XMS_ITS | Clinical Summary ---
Author Organization [facility] Address 75 [facility] 7 [place] [address] Care Team Providers Care Board Handler Name Role Phone Unavailable Primary Care Provider [...] Description 07/13/2025 9:00 AM EDT Office Visit [facility] OPTOMETRY [address] [place] [address] BertrandCalista jeter, OD [address] [place] [address] Health Maintenance Due Date Last Done Comments [...] 2008 Mammogram 2018 Tobacco Screening 11/18/2024 11/18/2023 Influenza Vaccine (#1) 2025 , 10/03/2022, 06/05/2020, Additional history exists Zoster Vaccines (1 of 2) 2028 DTaP/Tdap/Td Vaccines (2 - Td or Tdap) 07/16/2033 07/16/2023 RSV Patients and Patients Aged 60 years or older (1 - 1-dose 75+ series) 2053 COVID-19 Vaccine Completed 08/13/2024, , 07/18/2021, Additional [...] age to complete this topic Insurance , [place] [address]
--- NOTE | 2025-04-14 14:26 | MHC.OFFVIS ---
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: No Allergies tuberculin,PPD,multi-puncture Allergy (Unknown, Verified 03/08/25 09:44) reash ppd Allergy (Unknown, Uncoded 06/13/24 17:12) Rash Medication List - Last Reconciled 04/14/25 by Shell Wilkinson LPN albuterol sulfate 90 mcg/actuation 2 puffs inhalation Q6H PRN dextroamphetamine-amphetamine 10 mg (Adderall) 10 mg PO BID naproxen 500 mg PO BID PRN 10 days sertraline 25 mg PO DAILY Is last menstrual period known: Yes Last menstrual period: 03/31/25 Post menopausal: No Patient : No Do you need a note to return to daycare/school/sports/work: No HPI Comments Details: Patient is here today for an endometrial biopsy due to endometrial cells on her recent Pap smear. [facility] Medical History Colon cancer screening Reactive airway disease with wheezing Irregular menstrual cycle Anemia NATALIA on CPAP Hx of deep venous thrombosis Right leg DVT Impaired fasting glucose Lateral epicondylitis of left elbow Normal Pap smear Obesity Varicose veins of right lower extremity Mild intermittent asthma Obstructive sleep apnea on CPAP Depression with anxiety Urinary, incontinence, stress female Surgical History History of open reduction and internal fixation (ORIF) procedure Family History Father HTN (hypertension) Colon cancer Mother HTN (hypertension) Diabetes mellitus Mental health disorder Brother Parkinson disease Sister Depression Mental health disorder Brother No problems noted. Brother No problems noted. 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 needs: No Hearing needs: No Vision needs: Yes Female Reproductive History Menstrual Date of last menstrual period: 03/31/25 control method: none Total pregnancies: 0 Date of last pap smear: 03/08/25 History of abnormal pap smear: Yes (endometrial cells) History of STI: No Date of Mammogram: 07/15/24 Review of Systems Const All systems reviewed & are unremarkable except as noted in HPI and below Physical Exam Vital Signs: Last Vital Signs BP 128/72 04/14/25 14:27 BMI result Body Mass Index 36.4 Const General: cooperative, healthy appearing and no acute distress Orientation/consciousness: patient oriented x3 GI Inspection: Yes normal to inspection Palpation (GI): Soft to palpation and Other GI palpation findings present (Nontender) Rectal Exam - Female: visual inspection normal General: Yes bladder normal to palpation External Female Exam: normal appearance of the urethra Speculum Exam - Vagina: normal appearance of the vagina, normal palpation and normal vaginal discharge Speculum Exam - Cervix: normal appearance of the cervix and normal palpation Bimanual exam- vagina & uterus: normal bimanual exam, normal palpation, uterine size normal, bladder normal to palpation, normal palpation, uterine shape normal and non-tender Bimanual Exam- Adnexa, other: normal adnexae Neuro General: patient oriented x3 Office Procedures Endometrial Biopsy Details: The patient is here today for an endometrial biopsy due to endometrial cells on her Pap smear, to rule out any pathology including atypical, hyperplasia or cancer cells of the uterus. She was counseled regarding anticipatory guidance for the procedure including the risks for pain, infection, bleeding, perforation, potential injury to the tissues may include the cervix, uterus, tubes, bladder and bowels. These injuries may include further treatment and evaluation including surgery, blood transfusions, antibiotics, hospitalizations and anesthesia. Permanent injury and scarring can occur. She was consented for the procedure, and the consent forms were signed. She is agreeable to have the procedure today. All questions were answered. Endometrial Biopsy Procedure: The patient was placed in the dorsal lithotomy position and a sterile speculum inserted. Using aseptic technique for the procedure. The cervix was cleansed with Betadine x 3 swabs. A single toothed tenaculum was placed on the cervix for stabilization and the uterus was sounded to 7 cm with a 4mm pipelle, and tissue sample obtained. Minimal bleeding was observed. The tissue sample was placed in formalin in a patient labeled container by staff assisting and sent to the pathology department for processing and interpretation. The patient tolerate the procedure well and was in good condition when leaving the department. Endometrial Biopsy Post Procedure Care: Nothing in the vagina including: tampons, douching or intimacy until all the bleeding has subsided. There may be some post procedure bleeding for several days, this bleeding is usually light and may turn to a light brown or pink color. Mild cramps may occurs. Nothing in the vaginal including: tampons, douching, or intimacy until all the bleeding has subsided. You may take an over the counter mild analgesic such as Tylenol or Advil (if no allergies) per the manufactures recommendation on dosing, frequency, and follow the directions completely. Call the office if any: fever (over 100.4), flu like symptoms, abdominal pain (worse than cramping), foul smelling, infected appearing vaginal discharge, or heavy bleeding. If indicated: Use condoms to prevent and STI's, and only after the bleeding has stopped completely. Return to the office in 2 weeks for results and plan of care. This note is constructed using voice recognition software. While every effort has been made to ensure accuracy, surgical scheduler errors may have been included. [id number] Biopsy Results Reviewed Results Reviewed: Gynecologic Cytology [id number] Name: Olivia Sierra Age/Sex: 44/F Attending: Swetha Machado CNM : 1980 Submitted by: Swetha Machado CNM Copies to: Ameena Ryan MD MR #: [id number] Status: DEP REF Collected: 03/08/25 Location: [facility] Received: 03/08/25 Interpretation General Category: Negative for intraepithelial lesion/malignancy. Adequacy: Endocervical component present. Interpretation: Reactive and metaplastic cellular changes. Abundant, partially obscuring blood and acute inflammation. Some glandular groups may be reactive endometrial cells. HPV High Risk: Negative HPV Genotyping 16: Negative HPV Genotyping 18: Negative Comment: Endometrial cells after age 45, particularly out of phase or after menopause, may be associated with benign endometrium, hormonal alterations or, less commonly, endometrial/uterine abnormalities. Please correlate with clinical findings. Clinical Information LMP:02/20/25 Previous PAP test:2018 Material Received ThinPrep-Cervical Copies To Ameena Ryan MD [facility] [address] [address] Swetha Machado CNM [facility] Women's Services [address] [place] [address] Drive [address] [place] [address] [id number] Electronically Signed By: Yesenia Montesinos 03/12/25 1492 Patient: Olivia Sierra Age/Sex: 44/F MR#: [id number] Page 1 of 2 Gynecologic Cytology [id number] As of July 14, 2024, the technical services to include automated prescreening performed by the ThinPrep Imaging System, PAP screening and HPV testing will be performed at [facility] (CLIA #[id number]), [address] [place], [place] [id number]. Testing for HPV was performed using the Aleks ELAINA 6800 system. The presence of HPV in the female genital tract is associated with a number of diseases, including cervical carcinoma. The HPV DNA high risk pool tests for HPV 31, 33, 35, 39, 45, 51, 52, 56, 58, 59, 66 and 68. The testing for HPV 16 and 18 genotypes has also been performed. A positive result indicates detection of nucleic acid sequences from one or more subtypes, whereas a negative result indicates such sequences were not detected. All professional services are performed by [facility] ([address] [place] [id number]; ; CLIA #[id number]). The PAP Test is a screening procedure with the inherent possibility of both false negative and false positive results. Results should be interpreted in the context of historic and current clinical findings. Reliability of the PAP Test is enhanced by performing the test on a regular repetitive basis. Patient: Olivai Sierra Age/Sex: 44/F MR#: [id number] Page 2 of 2 Assessment & Plan Assessment & Plan (1) Endometrial cells on cervical Pap smear inconsistent w/LMP: Code(s): R87.619 - Unspecified abnormal cytological findings in specimens from cervix uteri Plan Endometrial biopsy obtained. See procedure notes. This note is constructed using voice recognition software. While every effort has been made to ensure accuracy, surgical scheduler errors may have been included. Orders: Orders Surgical Today R87.619 - Unspecified abnormal cytological findings in specimens from cervix uteri Coding Level of Care Code Procedure Only Diagnoses Endometrial cells on cervical Pap smear inconsistent w/LMP R87.619 CPT Codes Endometrial Biopsy - CPT: 21553-Rmpelixzydn Biopsy ([id number])
[2025-04-14 14:27] VITALS: BP 128/72; BMI 36.4
== END 2025-04-14 18:27 | disposition home or self-care (01) ==
LOC: HO.HWS 14:09
PROVIDERS: PCP Internal Medicine; Visit Provider Advanced Practice Midwife
DX: R87.619 Unspecified abnormal cytological findings in specimens from cervix uteri (principal)
CPT/HCPCS: 58100

== ENCOUNTER 2025-04-14 14:08 | Outpatient (REF) | payer OTHER, SELFPAY | END 2025-04-14 14:09 | disposition home or self-care (01) | LOC: HO.LNP 14:08 | PROVIDERS: PCP Internal Medicine; Visit Provider Advanced Practice Midwife | DX: R87.619 Unspecified abnormal cytological findings in specimens from cervix uteri (principal) | CPT/HCPCS: 58100; 88305 ==

== ENCOUNTER 2025-04-20 13:00 | Outpatient (RCR) | payer OTHER, SELFPAY ==
--- NOTE | 2025-03-16 14:46 | MHC.PT.EP ---
[facility] [place] Office [place] Office [place] Office [address] Blas [place] [address] [phone] F: [phone] F: [phone] F: [phone] F: [phone] Physical Therapy Plan of Care Date of Evaluation: 03/16/25 Date of Surgery: n/a Diagnosis: R ankle sprain Assessment: Patient is a 44 year old female presenting to PT with complaints of pain in her R ankle. Pt reports onset of pain began October 2024 due to slipping on ice. She presents today with impairments in pain, ankle strength, balance, tenderness to palpation. 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 Pt expresses half-way goal of reducing pain, and is motivated to work towards this in PT. Clinical presentation today is most consistent with signs and sx associated with R ankle pain and pt will benefit from skilled PT 2 week x 4 weeks to address the following problems and impairments noted upon evaluation: pain, ankle strength, balance, tenderness to palpation. These problems limit the patient with the following functional activities: ambulating, standing, stair negotiation, ADLs, work. The prescribed treatment plan of care is medically necessary. Co-morbidities of hx DVT, depression, anxiety were identified and taken into considerations of plan of care. Pt was educated on HEP, role of PT, prognosis, POC. Frequency and Duration: The patient will be seen 2 x week x 4 weeks Short Term Goals: Pt will demonstrate improved ankle MMT strength by 1/3 grade in 2 weeks. Pt will demonstrate ability to perform SLS x 30 sec on R in 2 weeks. Pt will demonstrate less tenderness to palpation in 2 weeks to R ankle ligaments. 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 Pt will demonstrate ability to ambulate with normal mechanics and min to no pain in 4 weeks for improved tolerance to work. Pt will demonstrate ability to negotiate stairs with min to no pain in 4 weeks for improved access to her home. Treatment Plan: Modalities to reduce pain, spasms and effusion. Manual therapy to restore motion and function. Therapeutic exercise to improve strength and flexibility. Neuromuscular re-education for posture and balance. Therapeutic activities to return to functional activities of daily living. Electronically signed by: Nadia Ashton PT, DPT, ATC Please sign and return to therapist. Thank you for your referral.
--- NOTE | 2025-05-20 06:33 | MHC.PT.DC ---
[facility] Office [place] Office [place] Office [address] [phone] F: [phone] F: [phone] F: [phone] F: [phone] Physical Therapy Discharge Report Diagnosis: R ankle sprain Date of Surgery: n/a Date of Evaluation: 03/16/25 Date of Discharge: 05/20/25 Treatments to Date: 6 Cancellations to Date: 0 No Shows to Date: 0 Discharge Status: Discharge Summary: Pt has not returned to skilled PT in > 30 days therefore to be d/c per policy. Electronically signed by: Nadia Ashton, PT, DPT, ATC Please sign and return to therapist. Thank you for your referral.
== END 2025-05-20 06:33 | disposition home or self-care (01) ==
LOC: HO.PTCHIC 13:00
PROVIDERS: PCP Internal Medicine; Visit Provider Physician Assistant
DX: S93.401D Sprain of unspecified ligament of right ankle, subsequent encounter (principal)
CPT/HCPCS: 97110; 97112; 97140; 97161

== ENCOUNTER 2025-04-25 16:23 | Outpatient (AMB) | payer OTHER, SELFPAY ==
--- OUTSIDE RECORDS SUMMARY | 2025-04-25 16:26 | XMS_ITS | Clinical Summary ---
Author Organization [employer] Address 75 [facility] [address] [place] [address] Care Team Providers Care Typesetting Supervisor Name Role Phone Unavailable Primary Care Provider [...] Description 07/13/2025 9:00 AM EDT Office Visit [facility] OPTOMETRY [address] [place] [address] BertrandCalista jeter, OD [address] [place] [address] Health Maintenance Due Date Last Done Comments [...] age to complete this topic Insurance , [place] [address]
--- NOTE | 2025-04-25 16:35 | A.OFFPSYCH_ITS ---
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 No sode effects; functioning is much better sleep and appetite intact; pt sometimes would like to have the adderall in afternoon and evenings when she has activities as she notices hard to concentrate or focus after work and in groups socially Past Psychiatric History: no IPLOC; no past tx of ADHD. has been on paxil and prozac in past for anxiety but not much help Subjective Subjective Subjective Medication Compliance: Yes Side effects from medications: No Review of Systems Medical Review of Systems: unchanged Mental Status Exam Mental Status Exam Patient Appearance: Well Grooomed Patient Orientation: Person, Place, Time and Situation Level of Consciousness: Awake and Appropriate Patient Behavior: Appropriate Mood Description: Calm and Happy Affect Description: Happy Patient Cognition Impaired: No Ability to Follow Directions: Good Speech Pattern: Clear Memory Description: Intact Hallucinations: None Delusions: Not Present Thought Process: Intact and Goal Oriented Thought Content: positive for Intact and positive for Goal Oriented Judgement: Fair Assessment and Plan Assessment & Plan (1) ADHD, predominantly inattentive type: Status: Acute Code(s): F90.0 - Attention-deficit hyperactivity disorder, predominantly inattentive type (2) JULIO C (generalized anxiety disorder): Status: Acute Code(s): F41.1 - Generalized anxiety disorder Plan increase adderall to 10 mg TID to extend coverage to evening hours at times when has activities Medications: Changed From dextroamphetamine-amphetamine 10 mg (Adderall) administer doses at least 4-6 hours apart; Partial Fill upon patient request. 10 mg PO BID 60 tabs 0RF F90.0 - Attention-deficit hyperactivity disorder, predominantly inattentive type To dextroamphetamine-amphetamine 10 mg (Adderall) administer doses at least 4-6 hours apart; Partial Fill upon patient request. 10 mg PO TID 90 tabs 0RF F90.0 - Attention-deficit hyperactivity disorder, predominantly inattentive type Counseling and coordination of Care Pt. Self Management counseling: Mod caffeine/ETOH intake, Nutrition education and improvement and Sleep hygiene Medication management counseling: Effectiveness, Side effects, Dosing range, Duration, Drug interaction and Adherence Diagnosis and Prognosis Counseling: Accuracy of diagnosis, Prognosis over time, Impact of diagnosis on life functions, Problematic behaviors secondary to diagnosis and Adequacy of current interventions Details: I spent 30 minutes reviewing the record, seeing the patient and documenting in the medical record. Counseling provided to the patient/caregiver as outlined below. Addressed patient/caregiver concerns regarding current medication regime including effective adherence. Addressed patient/caregiver concerns regarding diagnosis and prognosis including accuracy of diagnosis, prognosis over time, impact of diagnosis. Addressed patient/caregiver concerns regarding impact of recent stressors. [facility] Medical History Colon cancer screening Reactive airway disease with wheezing Irregular menstrual cycle Anemia NATALIA on CPAP Hx of deep venous thrombosis Right leg DVT Impaired fasting glucose Lateral epicondylitis of left elbow Normal Pap smear Obesity Varicose veins of right lower extremity Mild intermittent asthma Obstructive sleep apnea on CPAP Depression with anxiety Urinary, incontinence, stress female Surgical History History of open reduction and internal fixation (ORIF) procedure Family History Father HTN (hypertension) Colon cancer Mother HTN (hypertension) Diabetes mellitus Mental health disorder Brother Parkinson disease Sister Depression Mental health disorder Brother No problems noted. Brother No problems noted. 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 caring for her mother with early dementia Substance History: none Trauma History: none known Coding Level of Care Code Est Pt Level 4 (47073) Diagnoses ADHD, predominantly inattentive type F90.0 JULIO C (generalized anxiety disorder) F41.1
== END 2025-04-25 16:46 | disposition home or self-care (01) ==
LOC: HO.HOP 16:23
PROVIDERS: PCP Internal Medicine; Visit Provider Clinical Nurse Specialist Psychiatric/Mental Health
DX: F90.0 Attention-deficit hyperactivity disorder, predominantly inattentive type (principal); F41.1 Generalized anxiety disorder
CPT/HCPCS: 99214

== ENCOUNTER 2025-04-26 08:21 | Outpatient (AMB) | payer OTHER, SELFPAY ==
--- NOTE | 2025-04-26 08:21 | A.OFFVIS_ITS ---
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 Time spent included review of pertinent office notes in the electronic health record; review of laboratory and imaging results; review of personal family medical history; discussing diagnosis and plan of care with the patient; documenting the encounter in the EMR. Patient presents to discuss: Endometrial biopsy results, history of endometrial cells on Pap smear. Menses spacing slightly. [facility] Medical History Colon cancer screening Reactive airway disease with wheezing Irregular menstrual cycle Anemia NATALIA on CPAP Hx of deep venous thrombosis Right leg DVT Impaired fasting glucose Lateral epicondylitis of left elbow Normal Pap smear Obesity Varicose veins of right lower extremity Mild intermittent asthma Obstructive sleep apnea on CPAP Depression with anxiety Urinary, incontinence, stress female Surgical History History of open reduction and internal fixation (ORIF) procedure Family History Father HTN (hypertension) Colon cancer Mother HTN (hypertension) Diabetes mellitus Mental health disorder Brother Parkinson disease Sister Depression Mental health disorder Brother No problems noted. Brother No problems noted. 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 needs: No Hearing needs: No Vision needs: Yes Review of Systems Const All systems reviewed & are unremarkable except as noted in HPI and below Endo Reports no additional complaints Physical Exam Const General: cooperative, healthy appearing and no acute distress Psych Appearance: well kempt Attitude: cooperative Thought process: Normal thought process present Telehealth Telehealth Telehealth Platform: [employer] Location of provider rendering services: practice address Location of patient: address on file Patient Identification confirmed using: Name, : Yes Telehealth method: video Patient verbally consented to treatment: Yes Patient verbally consented to billing insurance company: Yes Patient informed of any privacy concerns related to visit: Yes Results Reviewed Results Reviewed: Name: Olivia Sierra Age/Sex: 44/F Attending: Swetha Machado CNM : 1980 Submitted by: Swetha Machado CNM Copies to: Ameena Ryan MD MR #: [id number] Status: DEP REF Collected: 04/14/25 Location: [facility] Received: 04/15/25 Diagnosis Endometrium, biopsy: Benign proliferative endometrium and benign endocervical glandular mucosa; no atypia or carcinoma. Clinical History Endometrial cells on PAP smear Microscopic Description Microscopic sections reviewed. Material Received Endometrial biopsy Gross Description Received in formalin labeled ?endo bx? is a 2.5 x 2.5 x 0.45 cm aggregate of predominantly mucus and blood and irregular fragments of congested and hemorrhagic red-maroon tissue, submitted in toto in a cassette labeled A. CEDS Copies To Ameena Ryan MD [facility] Primary Care, [address] [address] Swetha Machado CNM [facility] Women's Services [address] [place] [id number] NOTE: Unless otherwise stated, all tissue is formalin-fixed and paraffin-embe dded. Some or all of the immunohistochemical tests reported herein may have been developed and their performance characteristics determined by [facility]. They have not been cleared or approved by the U.S. Food and Drug Administration (FDA). However, the FDA has determined that such clearance or approval is not necessary. This laboratory is certified under the Clinical Laboratory Improvement Amendments of 1988 (CLIA) as qualified to perform high complexity clinical laboratory testing. Patient: Olivia Sierra [facility]/Sex: 44[id number] MR#: [id number] Page 1 of 2 Assessment & Plan Assessment & Plan (1) Endometrial cells on cervical Pap smear inconsistent w/LMP: Code(s): R87.619 - Unspecified abnormal cytological findings in specimens from cervix uteri Category: Medical Plan: Advised to call if there is any menstrual cycle irregularities- Monitor menstrual cycles, report any unscheduled bleeding, bleeding episodes <24 days apart or heavy/prolonged menstrual bleeding. Call the office for a follow up for any concerns. The patient expressed understanding and agreement with the plan of care. All of her questions and concerns were addressed to the best of my ability. Annual exam follow up as scheduled. (2) Encounter to discuss test results: Code(s): Z71.2 - Person consulting for explanation of examination or test findings Plan Discussed: Endometrial biopsy results- Diagnosis Endometrium, biopsy: Benign proliferative endometrium and benign endocervical glandular mucosa; no atypia or carcinoma. This note is constructed using voice recognition software. While every effort has been made to ensure accuracy, crude unit operator errors may have been included. Coding Level of Care Code Tele Est Pt Level 3 (33708) Diagnoses Endometrial cells on cervical Pap smear inconsistent w/LMP R87.619 Encounter to discuss test results Z71.2
--- OUTSIDE RECORDS SUMMARY | 2025-04-26 08:28 | XMS_ITS | Clinical Summary ---
Author Organization [facility] Address [address] [facility] [address] [place] [address] Care Team Providers Care Tightening Machine Operator Name Role Phone Unavailable Primary Care Provider [...] Description 07/13/2025 9:00 AM EDT Office Visit [facility] [address] [place] [address] BertrandCalista jeter, OD [address] [place] [address] Health Maintenance Due Date Last Done Comments [...] age to complete this topic Insurance , [place] [address]
== END 2025-04-26 09:53 | disposition home or self-care (01) ==
LOC: HO.HWS 08:21
PROVIDERS: PCP Internal Medicine; Visit Provider Advanced Practice Midwife
DX: R87.619 Unspecified abnormal cytological findings in specimens from cervix uteri (principal); Z71.2 Person consulting for explanation of examination or test findings
CPT/HCPCS: 99213

== ENCOUNTER 2025-05-11 09:20 | Outpatient (REF) | payer OTHER, SELFPAY ==
--- OUTSIDE RECORDS SUMMARY | 2025-05-11 10:03 | XMS_ITS | Clinical Summary ---
Author Organization [facility] Address [address] [facility] 7 [place] [address] Care Team Providers Care Outdoor Emergency Care Technician Name Role Phone Unavailable Primary Care Provider [...] Description 07/13/2025 9:00 AM EDT Office Visit [facility] [address] [place] [address] BertrandCalista jeter, OD [address] [place] [address] Health Maintenance Due Date Last Done Comments [...] age to complete this topic Insurance , [place] [address]
[2025-05-11 14:42] LABS: MANUAL DIFF FLAG NO
[2025-05-11 14:47] LABS: Hematocrit 42.3 % (37.0-47.0); Hemoglobin 13.7 g/dl (12.0-16.0); Imm Gran Abs Auto 0.02 X10*3/uL (0.00-0.03); Imm Gran Pct Auto 0.3 % (0.0-0.4); Lymphocytes Absolute Auto 2.2 X10*3/uL (1.2-4.9); Mean Corpuscular HGB Conc 32.4 g/dl (31.0-35.0); Mean Corpuscular Hemoglobin 27.8 pg (27.0-33.0); Mean Corpuscular Volume 86.0 fL (80.0-98.0); NRBC Abs Auto 0.000 X10*3/uL (0.0-0.012); NRBC Pct Auto 0.0 /100WBC (0.0-0.2); Platelet Count 347 X10*3/uL (160-400); Red Blood Count 4.92 X10*6/uL (4.20-5.50); White Blood Count 7.2 X10*3/uL (4.8-10.8)
[2025-05-11 15:16] LABS: Alanine Aminotransferase 21 U/L (0-31); Anion Gap 13 (12-20); Aspartate Amino Transferase 24 U/L (5-31); Blood Urea Nitrogen 15 mg/dL (9-16); Calcium 9.3 mg/dL (8.4-10.2); Carbon Dioxide 27 mmol/L (22-29); Chloride 104 mmol/L (96-108); Cholesterol 174 mg/dL (<200); Estimated Glomerular Filt Rate > 60; HDL Cholesterol 47 mg/dL (>40); Potassium 3.9 mmol/L (3.3-5.1); Sodium 140 mmol/L (135-145); Triglycerides 87 mg/dL (<150)
== END 2025-05-11 09:21 | disposition home or self-care (01) ==
LOC: HO.CHCLDS 09:20
PROVIDERS: Visit Provider Internal Medicine
DX: Z00.01 Encounter for general adult medical examination with abnormal findings (principal); R73.01 Impaired fasting glucose; D64.9 Anemia, unspecified; E66.9 Obesity, unspecified
CPT/HCPCS: 36415; 80048; 80061; 84450; 84460; 85025

== ENCOUNTER 2025-05-13 10:14 | Outpatient (REF) | payer OTHER, SELFPAY ==
--- NOTE | ~2025-05-13 | XR_ITS ---
EXAMINATION: XR ANKLE, right CLINICAL INFORMATION: M25.579 - Pain in unspecified ankle and joints of unspecified foot COMPARISON: None available. TECHNIQUE: AP, lateral, and mortise views lower extremity joint, ankle. FINDINGS: Ankle mortise is congruent. There is no widening of the syndesmosis. Talar dome is intact. There are there is a small enthesophyte at the Achilles tendon attachment onto calcaneus. calcaneal enthesophytes. XR/XR ankle RT min 3V IMPRESSION: Small calcaneal spur. Electronically signed by: Michael Eng MD 05/13/2025 01:09 PM EDT
--- OUTSIDE RECORDS SUMMARY | 2025-05-16 11:20 | XMS_ITS | Clinical Summary ---
Author Organization [employer] Address [address] [facility] [address] [place] [address] Care Team Providers Care Mechanic/Welder Name Role Phone Unavailable Primary Care Provider [...] Description 07/13/2025 9:00 AM EDT Office Visit [facility] [address] [place] [address] BertrandCalista jeter, OD [address] [place] [address] Health Maintenance Due Date Last Done Comments [...] age to complete this topic Insurance , [place] [address]
== END 2025-05-13 10:15 | disposition home or self-care (01) ==
LOC: HO.HOSX 10:14
PROVIDERS: Visit Provider Physician Assistant
DX: S93.401A Sprain of unspecified ligament of right ankle, initial encounter (principal); M25.571 Pain in right ankle and joints of right foot; X58.XXXA Exposure to other specified factors, initial encounter
CPT/HCPCS: 73610

== ENCOUNTER 2025-05-13 12:56 | Outpatient (AMB) | payer OTHER, SELFPAY ==
--- OUTSIDE RECORDS SUMMARY | 2025-05-13 13:00 | XMS_ITS | Clinical Summary ---
Author Organization [facility] Address [address] [facility] [address] [place] [address] Care Team Providers Care Mending Carrier Name Role Phone Unavailable Primary Care Provider [...] Description 07/13/2025 9:00 AM EDT Office Visit [facility] [address] [place] [address] BertrandCalista jeter, OD [address] [place] [address] Health Maintenance Due Date Last Done Comments [...] age to complete this topic Insurance , [place] [address]
--- NOTE | 2025-05-13 13:05 | A.OFFVIS_ITS ---
Vital Signs 05/13/25 13:07 Height 5 ft 2 in Weight 200 lb BMI 36.6 Intake Visit Reasons: OV - right ankle sprain, DOI 11/11/24 Intake Note: Olivia is a 45 year old female who presents today for a follow up on her right ankle sprain, DOI 11/11/24. At her last visit she was provided with a lace-up ankle brace, referred to physical therapy, and instructed to follow up in 6 weeks. Patient reports her brace has helped her but she started PT and hasn't used it since she started. Reports her swelling has resolved. She expresses continued sporadic pain. OTC medication and her PT exercises offer her mild relief. She says a long day with the wrong shoes causes her extreme pain and swelling. The lack of support and mis-stepping causes an increase in her symptoms. Says her ankle is still crunchy.' Allergies tuberculin,PPD,multi-puncture Allergy (Unknown, Verified 05/13/25 13:07) reash ppd Allergy (Unknown, Uncoded 05/13/25 13:07) Rash HPI HPI OV - right ankle sprain, DOI 11/11/24: Details: Ms. Kapadia is a 45-year-old female who presents to the office today for follow-up status post right ankle sprain. Date of Cohn -2024. She has been attending physical therapy and has noticed improvement. She has been using the lace-up ankle brace with activities. Overall the patient is happy with her progress that she is making. No additional complaints at this time [facility] Medical History Colon cancer screening Reactive airway disease with wheezing Irregular menstrual cycle Anemia NATALIA on CPAP Hx of deep venous thrombosis Right leg DVT Impaired fasting glucose Lateral epicondylitis of left elbow Normal Pap smear Obesity Varicose veins of right lower extremity Mild intermittent asthma Obstructive sleep apnea on CPAP Depression with anxiety Urinary, incontinence, stress female Surgical History History of open reduction and internal fixation (ORIF) procedure Family History Father HTN (hypertension) Colon cancer Mother HTN (hypertension) Diabetes mellitus Mental health disorder Brother Parkinson disease Sister Depression Mental health disorder Brother No problems noted. Brother No problems noted. 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 Full range of motion with dorsiflexion, plantar flexion, pronation supination. NVI. Psych Appearance: well kempt Attitude: cooperative Thought process: Normal thought process present Assessment & Plan Assessment & Plan (1) Right ankle sprain: Code(s): S93.401A - Sprain of unspecified ligament of right ankle, initial encounter Category: Medical Plan Ms. Kapadia is a 45-year-old female who presents to the office today for follow-up status post right ankle sprain. Date of Cohn. She has been attending physical therapy and has noticed improvement. She has been using the lace-up ankle brace with activities. Overall the patient is happy with her progress that she is making. No additional complaints at this time While in the office today, I encouraged the patient to continue with a home exercise program. Additionally, she may use the brace during activities as needed. I recommended continued conservative treatment with ibuprofen, Tylenol, ice, compression and rest as needed. She will follow up PRN, sooner if needed. Should the patient continue to have pain and MRI would be considered at that time. X-rays of the right ankle which were obtained while in the office today and were reviewed by me, Lynnette Cazares PA-C, revealed no acute fracture or dislocation. Orders: Orders XR ankle RT min 3V Today M25.579 - Pain in unspecified ankle and joints of unspecified foot Coding Level of Care Code Est Pt Level 3 (86189) Diagnoses Right ankle sprain S93.417X
[2025-05-13 13:07] VITALS: BMI 36.6
== END 2025-05-13 13:27 | disposition home or self-care (01) ==
LOC: HO.HOS 12:57
PROVIDERS: PCP Internal Medicine; Visit Provider Physician Assistant
DX: S93.401A Sprain of unspecified ligament of right ankle, initial encounter (principal)
CPT/HCPCS: 99213

== ENCOUNTER → 2025-05-13 12:59 | Outpatient (BNV) | payer OTHER, SELFPAY | PROVIDERS: Visit Provider Radiology Diagnostic Radiology | DX: M77.31 Calcaneal spur, right foot (principal) | CPT/HCPCS: 73610 ==

== ENCOUNTER 2025-05-30 11:22 | Outpatient (AMB) | payer OTHER, SELFPAY ==
[2025-05-30 11:58] VITALS: BP 130/72; PULSE 88; TEMP 36.8; O2SAT 98; BMI 36.8
--- NOTE | 2025-05-30 11:58 | AM.OFFWIN_ITS ---
Intake Vital Signs 05/30/25 11:58 Height 5 ft 2 in Weight 201 lb 2 oz BMI 36.8 BP 130/72 Blood Pressure Location Lt brachial Position Sitting Pulse 88 Pulse Source Pulse Oximeter Temp 98.3 F Temp Source Oral Pulse Oximetry (%) 98 Intake Visit Reasons: EP-migraine, neck pain Patient Tobacco Use Status: Never used Tobacco Allergies tuberculin,PPD,multi-puncture Allergy (Unknown, Verified 05/30/25 11:59) reash ppd Allergy (Unknown, Uncoded 05/13/25 13:07) Rash Do you need a note to return to daycare/school/sports/work: Yes HPI HPI Comments History of Present Illness Details 45 y/o Female patient who presents to [facility] walk [facility] clinic with c/o right sided Temporal Headaches since this morning. Denies Nausea, vomiting, Fevers, chills, or Light-sensitivity. Denies vision changes. [facility] Medical History (Updated 05/30/25 @ 12:18 by Cassandra Bowers NP) Generalized headaches Colon cancer screening Reactive airway disease with wheezing Irregular menstrual cycle Anemia NATALIA on CPAP Hx of deep venous thrombosis Right leg DVT Impaired fasting glucose Lateral epicondylitis of left elbow Normal Pap smear Obesity Varicose veins of right lower extremity Mild intermittent asthma Obstructive sleep apnea on CPAP Depression with anxiety Urinary, incontinence, stress female Surgical History History of open reduction and internal fixation (ORIF) procedure Family History Father HTN (hypertension) Colon cancer Mother HTN (hypertension) Diabetes mellitus Mental health disorder Brother Parkinson disease Sister Depression Mental health disorder Brother No problems noted. Brother No problems noted. 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 needs: No Hearing needs: No Vision needs: Yes Review of Systems Const All systems reviewed & are unremarkable except as noted in HPI and below Physical Exam Vital Signs: Last Vital Signs Temp 98.3 F 05/30/25 11:58 Pulse 88 05/30/25 11:58 BP 130/72 05/30/25 11:58 Pulse Ox 98 05/30/25 11:58 BMI result Body Mass Index 36.8 Const General: no acute distress Nutritional Appearance: overweight Orientation/consciousness: patient oriented x3 HEENT Head: Yes normal to inspection and Yes normocephalic Resp Effort & Inspection: normal respiratory effort Auscultation: clear to auscultation bilaterally, no crackles, no rales, no rhonchi and no wheezes Cardio Heart sounds: S1 normal heart sound present and S2 normal heart sound present Neuro General: patient oriented x3 Assessment & Plan Assessment & Plan (1) Generalized headaches: Code(s): R51.9 - Headache, unspecified Plan: Ordered Acetaminophen and Ibuprofen for pain relief. Rest in Dark quiet room. F/U with PCP as scheduled. Medications: New acetaminophen 1,000 mg (2 x 500 mg) PO Q6H 30 caps 0RF pain R51.9 - Headache, unspecified ibuprofen 800 mg PO Q8H 30 tabs 0RF R51.9 - Headache, unspecified Coding Level of Care Code Est Pt Level 4 (91928) Diagnoses Generalized headaches R51.9 Time Spent (min) 20
--- OUTSIDE RECORDS SUMMARY | 2025-05-30 14:06 | XMS_ITS | Clinical Summary ---
Author Organization [employer] Address [address] [facility] [address] [place] [address] Care Team Providers Care Construction Field Engineer Name Role Phone Unavailable Primary Care Provider [...] Description 07/13/2025 9:00 AM EDT Office Visit [facility] [address] [place] [address] BertrandCalista jeter, OD [address] [place] [address] Health Maintenance Due Date Last Done Comments [...] age to complete this topic Insurance , [place] [address]
== END 2025-05-30 12:19 | disposition home or self-care (01) ==
PROVIDERS: Visit Provider Nurse Practitioner Family
DX: R51.9 Headache, unspecified (principal)

== ENCOUNTER 2025-06-20 10:13 | Outpatient (AMB) | payer OTHER, SELFPAY ==
--- NOTE | 2025-06-20 10:17 | A.OFFPC_ITS ---
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 Accompanied by: Self / Same As Patient Allergies tuberculin,PPD,multi-puncture Allergy (Unknown, Verified 06/20/25 10:36) reash ppd Allergy (Unknown, Uncoded 06/20/25 10:36) Rash Medication List - Last Reconciled 06/20/25 by Ameena Ryan MD acetaminophen 1,000 mg (2 x 500 mg) PO Q6H albuterol sulfate 90 mcg/actuation 2 puffs inhalation Q6H PRN dextroamphetamine-amphetamine 10 mg (Adderall) 10 mg PO TID ibuprofen 800 mg PO Q8H sertraline 25 mg PO DAILY Tobacco use date assessed: 06/20/25 Dental Screening Dental Screen Date: 06/20/25 Did you have a dental visit in the last 12 months?: Yes Did you have a dental problem in the last 6 months where you did not have access to dental care?: No Was dental information given to patient?: Patient has dentist HPI PE HPI Details 45-year-old lady with history of ADHD pr edominantly inattentive type, and generalized anxiety disorder currently controlled on Adderall and sertraline, followed by Psychiatry, Nila Juarez APRN, here today for her physical exam. She goes to [facility], sees Swetha Machado, who does her routine Pap and pelvic exam. Last 1 done was on 03/08/2025 which came back negative for intraepithelial lesion/malignancy. Reactive and metaplastic cellular changes.Some glandular groups may be reactive endometrial cells, HPV High Risk: Negative. Endometrial biopsy done 04/14/2025 showed benign proliferative endometrium and benign endocervical glandular mucosa; no atypia or carcinoma seen . Up-to-date with her breast cancer screening, due again for a repeat mammogram this June. Complaining of recurrent right-sided headache with starts mainly above her eye going backwards, this was accompanied by right-sided posterior neck pain and tightness, worse after spending a lot of time staring at the computer. Has tried applying ice packs to affected area which affords only relief. Episodes have been occurring almost every month [facility] Medical History (Updated 06/20/25 @ 11:12 by Ameena yRan MD) Generalized headaches Colon cancer screening Reactive airway disease with wheezing Irregular menstrual cycle Anemia NATALIA on CPAP Hx of deep venous thrombosis Right leg DVT Impaired fasting glucose Lateral epicondylitis of left elbow Normal Pap smear Obesity Varicose veins of right lower extremity Mild intermittent asthma Obstructive sleep apnea on CPAP Urinary, incontinence, stress female Surgical History History of open reduction and internal fixation (ORIF) procedure Family History Father HTN (hypertension) Colon cancer Mother HTN (hypertension) Diabetes mellitus Mental health disorder Brother Parkinson disease Sister Depression Mental health disorder Brother No problems noted. Brother No problems noted. 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 1. Little interest or pleasure in doing things: not at all 2. Feeling down, depressed, or hopeless: not at all 3. Trouble falling or staying asleep, or sleeping too much: several days 4. Feeling tired or having little energy: several days 5. Poor appetite or overeating: several days 6. Feeling bad about yourself - or that you are a failure or have let yourself or your family down: several days 7. Trouble concentrating on things, such as reading the newspaper or watching television: not at all 8. Moving or speaking so slowly that other people could have noticed. Or the opposite - being so fidgety or restless that you have been moving around a lot m ore than usual: not at all 9. Thoughts that you would be better off or of hurting yourself in some way: not at all Total score: 4 Depression Screening Interpretation: Negative Depression Screening Done: Yes 02250 - PHQ-9 Billing: Yes Source: Developed by Drs. Jas Bernal, Rae Escoto, Shashi Stafford and colleagues, with an educational abiel from [employer]. Thrive Questionnaire Date Thrive assessed: 06/17/25 I am a: Patient What is your living situation today?: I have a steady place to live Within the past 12 months, did the food you bought not last and you didn't have the money to get more?: Never true Within the past 12 months, did you worry whether your food would run out before you got money to buy more?: Never true Do you have trouble paying for medicines?: No Do you have trouble getting transportation to medical appointments?: No Do you have trouble paying your heating and electricity bill?: No Do you have trouble taking care of your child, family member or friend?: No Do you have trouble with day-to-day activities such as bathing, preparing meals, shopping, managing finances, etc.?: No Are you currently unemployed and looking for a job?: No Are you interested in more education?: No Please select the resources that you would like help with: None Currently or been in a relationship where the following occur: No concerns reported THRIVE Score: 0 AUDIT C Alcohol Use Questionnaire (AUDIT-C) 1. How often do you have a drink containing alcohol?: 2-4 times a month 2. How many drinks containing alcohol do you have on a typical day when you are drinking?: 1 or 2 3. How often do you have six or more drinks on one occasion?: Never Total Score: 2 Score Reviewed/Action Taken: Yes JULIO C-7 AMB Questionnaire JULIO C-7 Date JULIO C - 7 assessed: 06/20/25 Feeling nervous, anxious, or on edge: 1 = Several days Not being able to stop or control worryin = Not at all Worrying too much about different things: 1 = Several days Trouble relaxin = Not at all Being so restless that it is hard to sit still: 0 = Not at all Becoming easily annoyed or irritable: 1 = Several days Feeling afraid as if something awful might happen: 0 = Not at all Total JULIO C-7 score (0-4 normal; 5-9 mild; 10-14 moderate; 15-21 severe): 3 Source: Developed by Drs. Jas Bernal, Rae Escoto, Shashi Stafford and colleagues, with an educational abiel from [employer]. JULIO C-7 Assessment Billing JULIO C-7 Assessment Tool: JULIO C-7 Assessment 18518 Review of Systems Const Reports no additional complaints Eyes Details: sees [facility] normal wears corrective lenses, no glaucoma, slight astigmatism, no macular degeneration seen ENT Details: Overdue for her dental cleaning Reports no additional complaints Card Reports no additional complaints Resp Reports no additional complaints GI Reports no additional complaints Reports no additional complaints and Reports abnormal menses (Irregular menstrual cycles) Musc Details: Sharp pain and tightness on right posterior neck, sometimes radiating down right shoulder Skin/Breast Denies breast pain, Denies breast mass and Denies rash Neuro Details: right sided headache , triggered by stress ,staringat a computer monitor, every few months , Psych Reports as per HPI Endo Reports no additional complaints Abhinav/Lymph Reports no additional complaints Aller/Immun Reports no additional complaints Physical exam (Primary Care) Vital Signs: Last Vital Signs Pulse 66 06/20/25 10:20 BP 122/80 06/20/25 10:20 Pulse Ox 98 06/20/25 10:20 BMI result Body Mass Index 36.9 Tobacco/Smoking Status: Tobacco use Status Tobacco use date assessed 06/20/25 06/20/25 10:20 Patient Tobacco Use Status Never used Tobacco 06/20/25 10:19 e-Cigarette/Vaping Use Never Used 06/20/25 10:19 PHQ-9: PHQ-9 Score PHQ-9: Total score 6 06/20/25 10:39 Depression Screening Interpretation: Negative Thrive Assessment: Date of Thrive Assessment Date Thrive assessed 06/17/25 06/20/25 10:19 Currently or been in a relationship where the following occur: No concerns re ported Const General: no acute distress and alert Orientation/consciousness: patient oriented x3 HENMT Head: Yes normocephalic Ears: external ears normal, TM's normal bilaterally and EAC's normal General nose exam: Normal external nose present Face and sinus: Yes face symmetric Mouth: Normal oral and palatal mucosa present and moist mucous membranes Eyes General: appearance normal, both eyes and all related structures Neck Neck: Yes full ROM, Yes no lymphadenopathy and Yes supple Thyroid: Thyroid normal Resp Effort & Inspection: normal respiratory effort and able to speak in complete sentences Auscultation: clear to auscultation bilaterally Cardio Rate: regular rate Rhythm: regular rhythm Heart sounds: S1 normal heart sound present and S2 normal heart sound present GI Palpation (GI): Soft to palpation, nontender, no guarding and no masses Auscultation: normal bowel sounds General: Yes no CVA tenderness Back/Spine/Pelvis Back: no CVA tenderness and No back tenderness Skin General skin exam: no rashes or lesions noted Neuro General: patient oriented x3, gait normal, moves all extremities, Normal light touch and pain sensation and no focal motor deficits Cognition (Neuro): normal cognition Gait exam (Neuro): Normal gait present Motor exam (neuro): 5/5 motor strength present throughout Extrem General: Yes normal to inspection, Yes full ROM, Yes no joint enlargement, Yes no pedal edema and Yes normal gait Psych Appearance: grossly normal and well kempt Mental Status: mental status grossly normal Speech and movement: Normal speech and movement present Affect: normal affect Results Reviewed Results Reviewed: carri: Olivia Sierra Age/Sex: 45/F : 1980 Unit#: [id number] Attend Dr: Ameena Ryan MD Re05/11/25 Status: DEP REF Location: [facility] Disch: SPEC : [id number] LESVIA: 05/11/25 STATUS: COMP REQ : [id number] RECD: 05/11/25-[address]: Ameena Ryan MD COMP: 05/11/25-151 ENTERED: 05/11/25-[address]: ORDERED: Met Prof Fast, AST, ALT, Lipid Panel Test Result Flag Reference Sodium 140 135-145 mmol/L Potassium 3.9 3.3-5.1 mmol/L CL 104 96-108 mmol/L CO2 27 22-29 mmol/L Gap 13 12-20 BUN 15 9-16 mg/dL Creat 0.82 0.5-1.4 mg/dL eGFR > 60 Chronic Kidney Disease: Estimated GFR < 60 mL/min/1. 73m2 Severe Kidney Disease: Estimated GFR < 15 mL/min/1.73m2 FBS 111 H 60-99 mg/dL A fasting glucose from 100-125 mg/dl is considered impaired (pre-diabetes). CA 9.3 8.4-10.2 mg/dL AST (GOT) 24 5-31 U/L ALT (GPT) 21 0-31 U/L Triglyceride 87 <150 mg/dL Desirable Triglyceride: less than 150 mg/dL Borderline High Triglyceride 150-199 mg/dL High Triglyceride: 200-499 mg/dL Very High Triglyceride: greater than or equal to 5OO mg/dL Cholesterol 174 <200 mg/dL Desirable Cholesterol: less than 200 mg/dL Borderline High Cholesterol: 200-239 mg/dL High Cholesterol: greater than 239 mg/dL LDL Calculated 110 H <100 mg/dL Desirable LDL: less than 100 mg/dL Near Optimal/Above Optimal LDL: 110-129 mg/dL Borderline High LDL: 130-159 mg/dL High LDL: 160-189 mg/dL Very High LDL: greater than or equal to 190 mg/dL HDL 47 >40 mg/dL Desirable HDL: greater than 40 mg/dL Note: This HDL assay may give artificially low results in patients with liver disease. Name: Olivia Sierra Age/Sex: 45/F : 1980 Unit#: [id number] Attend Dr: Ameena Ryan MD Re05/11/25 Status: DEP REF Location: [facility] Disch: SPEC : [id number] LESVIA: 05/11/25 STATUS: COMP REQ : [id number] RECD: 05/11/25-[address]: Ameena Ryan MD COMP: 05/11/25 ENTERED: 05/11/[address] [facility] DR: ORDERED: CBC Auto Diff Test Result Flag Reference WBC 7.2 4.8-10.8 X10*3/ uL RBC 4.92 4.20-5.50 X10*6/uL HGB 13.7 12.0-16.0 g/dl HCT 42.3 37.0-47.0 % MCV 86.0 80.0-98.0 fL MCH 27.8 27.0-33.0 pg MCHC 32.4 31.0-35.0 g/dl RDW 12.8 11.0-16.0 % PLT 347 160-400 X10*3/uL MPV 10.1 9.4-12.3 fL Neut Pct Auto 61.6 45-73 % ImGran Pct Auto 0.3 0.0-0.4 % Lymp Pct Auto 30.0 20-40 % Hodgeman Pct Auto 6.8 2-11 % Eos Pct Auto 1.0 0-4 % Baso Pct Auto 0.3 0-2 % NRBC Pct Auto 0.0 0.0-0.2 /100WBC ANC Neut Abs # 4.4 2.0-8.3 x10*3/uL ImGran Abs Auto 0.02 0.00-0.03 X10*3/uL Lymph Abs Auto 2.2 1.2-4.9 X10*3/uL Hodgeman Abs Auto 0.5 0.1-1.2 X10*3/uL Eos Abs Auto 0.1 0.0-0.4 X10*3/uL Baso Abs Auto 0.0 0.0-0.2 X10*3/uL NRBC Abs Auto 0.000 0.0-0.012 X10*3/uL Coding Level of Care Code Est Pt Prev Care 40-64y(69745) Diagnoses Annual visit for general adult medical examination with abnormal findings Z00.01 Right-sided headache R51.9 JULIO C (generalized anxiety disorder) F41.1 ADHD, predominantly inattentive type F90.0 Impaired fasting glucose R73.01 Obesity E66.9 Obesity classification: adult class 2 (BMI 35 - 39.9) Serious obesity comorbidity presence: with serious comorbidity Body mass index: BMI 35.0-35.9 Colon cancer screening Z12.11 Mild intermittent asthma J45.20 Obstructive sleep apnea on CPAP G47.33; Z99.89 Additional Codes JULIO C-7 Assessment Billing - JULIO C-7 Assessment Tool: JULIO C-7 Assessment 78756 ([id number]) PHQ-9 - 99545 - PHQ-9 Billing: Yes ([id number]) Assessment & Plan Assessment & Plan (1) Annual visit for general adult medical examination with abnormal findings: Code(s): Z00.01 - Encounter for general adult medical examination with abnormal findings Plan: Reviewed recent fasting lab results with patient. Continue regular dental visit every 6 months and regular eye exams, at least every 2 years. Take adequate calcium in diet and vitamin-D 3 at 2000 IU per cap once a day, in addition to weight-bearing exercises to help maintain good muscle tone and weight control. Instructed to do self-breast exam, and continue to get yearly mammogram, up-to-date with her cervical cancer screening . Reminded to do Cologuard test k it for colon cancer screening, flu vaccine given today. (2) Right-sided headache: Code(s): R51.9 - Headache, unspecified Plan: Trial of sumatriptan 100 mg per tablet to take right away at onset of headache, may repeat another dose 2 hours after headaches still persistent. Referred to neurology for further evaluation and management. May continue application of ice to affected area for 15 minutes 3 to 4 times a day as needed. (3) JULIO C (generalized anxiety disorder): Code(s): F41.1 - Generalized anxiety disorder Category: Medical Plan: Stable and controlled on sertraline 25 mg daily, followed by nurse psychiatrist at [facility] (4) ADHD, predominantly inattentive type: Code(s): F90.0 - Attention-deficit hyperactivity disorder, predominantly inattentive type Category: Medical Plan: Doing well on Adderall 10 mg taken 1 tablet 3 times a day. Followed by nurse psychiatrist at [facility]. (5) Impaired fasting glucose: Code(s): R73.01 - Impaired fasting glucose Category: Medical Plan: Your previous fasting blood sugars were elevated above 100 mg/dL. Impaired glucose metabolism increases the risk for developing diabetes mellitus type 2, as well as heart attack and stroke later on. Lifestyle changes that promotes weight loss, healthy eating habits, and regular exercise are important, and can prevent the progression to diabetes (6) Obesity: Code(s): E66.9 - Obesity, unspecified Category: Medical Qualifiers: Obesity classification: adult class 2 (BMI 35 - 39.9) Serious obesity comorbidity presence: with serious comorbidity Body mass index: BMI 35.0-35.9 Plan: Discussed need to increase activity and weight reduction. Recommended focusing on improving health instead of dieting. Mediterranean diet is a healthy diet that helps, limit food high in fat, sugar, and calories. Eat slowly, pay attention to portion sizes, plan your meals ahead of time, start regular physical activity, at least 150 minutes of moderate intensity exercise, or 90 minutes per week of vigorous exercise. (7) Colon cancer screening: Code(s): Z12.11 - Encounter for screening for malignant neoplasm of colon Category: Medical Plan: Advised to do Cologuard test kit already at home. With [employer] to see if kit can still be used and make sure it has not . (8) Mild intermittent asthma: Code(s): J45.20 - Mild intermittent asthma, uncomplicated Category: Medical Plan: Uses her albuterol only as needed for episodes of bronchospasm and wheezing (9) Obstructive sleep apnea on CPAP: Comment: Seen by Dr. Gallagher Code(s): G47.33 - Obstructive sleep apnea (adult) (pediatric); Z99.89 - Dependence on other enabling machines and devices Category: Medical Plan: Currently on CPAP followed by Dr. Gallagher weight loss strongly recommended Orders: Orders Influenza [id number] Immunization Today Z23 - Encounter for immunization Referrals Neurology Referral R51.9 - Headache, unspecified Medications: New sumatriptan succinate take 1 tab at onset of headache; if no relief, may repeat 1 tab after at least 2 hrs; max = 2 tabs/24 hrs PO 10 tabs 0RF Fluarix [id number] (PF) (flu vac ts 2024-(6mos up)-PF) 0.5 mL IM ONCE 0.5 mL 0RF NS Z23 - Encounter for immunization
[2025-06-20 10:20] VITALS: BP 122/80; PULSE 66; O2SAT 98; BMI 36.9
--- OUTSIDE RECORDS SUMMARY | 2025-06-20 11:22 | XMS_ITS | Clinical Summary ---
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
== END 2025-06-20 11:09 | disposition home or self-care (01) ==
LOC: HO.HMCC 10:14
PROVIDERS: PCP Internal Medicine; Visit Provider Internal Medicine
DX: Z00.01 Encounter for general adult medical examination with abnormal findings (principal); R51.9 Headache, unspecified; E66.9 Obesity, unspecified; Z68.36 Body mass index [BMI] 36.0-36.9, adult; F41.1 Generalized anxiety disorder; F90.0 Attention-deficit hyperactivity disorder, predominantly inattentive type; R73.01 Impaired fasting glucose; Z12.11 Encounter for screening for malignant neoplasm of colon; J45.20 Mild intermittent asthma, uncomplicated; G47.33 Obstructive sleep apnea (adult) (pediatric); Z99.89 Dependence on other enabling machines and devices; Z23 Encounter for immunization

== ENCOUNTER → 2025-06-20 10:13 | Outpatient (BNVA) | payer OTHER, SELFPAY | PROVIDERS: PCP Internal Medicine; Visit Provider Internal Medicine | DX: Z00.01 Encounter for general adult medical examination with abnormal findings (principal); F90.9 Attention-deficit hyperactivity disorder, unspecified type; R51.9 Headache, unspecified; R73.01 Impaired fasting glucose; E66.9 Obesity, unspecified; G47.33 Obstructive sleep apnea (adult) (pediatric); J45.20 Mild intermittent asthma, uncomplicated; Z23 Encounter for immunization; Z68.35 Body mass index [BMI] 35.0-35.9, adult; Z99.89 Dependence on other enabling machines and devices | CPT/HCPCS: 90471; 90656; 96127 ==

== ENCOUNTER 2025-07-05 16:23 | Outpatient (AMB) | payer OTHER, SELFPAY ==
--- NOTE | 2025-07-05 16:37 | A.OFFPSYCH_ITS ---
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: No Allergies tuberculin,PPD,multi-puncture Allergy (Unknown, Verified 06/20/25 10:36) reash ppd Allergy (Unknown, Uncoded 06/20/25 10:36) Rash Medication List - Last Reconciled 07/05/25 by Yesenia Uribe APRN acetaminophen 1,000 mg (2 x 500 mg) PO Q6H albuterol sulfate 90 mcg/actuation 2 puffs inhalation Q6H PRN dextroamphetamine-amphetamine 10 mg (Adderall) 10 mg PO TID ibuprofen 800 mg PO Q8H sertraline 25 mg PO DAILY sumatriptan succinate take 1 tab at onset of headache; if no relief, may repeat 1 tab after at least 2 hrs; max = 2 tabs/24 hrs PO HPI- Psychiatric Chief Complaint: follow up HPI Narrative: pt here for follow up re: anxiety and ADHD pt reports much improved. No side effects;she is having more trouble functioning as the fall weather has approached; she is having a harder time getting out of bed in the am; she has been late to work; she reports falling asleep better and appetite intact; pt feels the adderall is very helpful at work and in the and needs to focus after work and in groups socially; we discussed increasing the zoloft but pt reluctant to at this time Past Psychiatric History: no IPLOC; no past tx of ADHD. has been on paxil and prozac in past for anxiety but not much help Mental Status Exam Mental Status Exam Patient Appearance: Well Grooomed Patient Orientation: Person, Place, Time and Situation Level of Consciousness: Awake and Appropriate Patient Behavior: Appropriate Mood Description: Calm and Happy Affect Description: Happy Patient Cognition Impaired: No Ability to Follow Directions: Good Speech Pattern: Clear Memory Description: Intact Hallucinations: None Delusions: Not Present Thought Process: Intact and Goal Oriented Thought Content: positive for Intact and positive for Goal Oriented Judgement: Fair Assessment and Plan Assessment & Plan (1) ADHD, predominantly inattentive type: Status: Acute Code(s): F90.0 - Attention-deficit hyperactivity disorder, predominantly inattentive type (2) JULIO C (generalized anxiety disorder): Status: Acute Code(s): F41.1 - Generalized anxiety disorder (3) Fatigue: Status: Acute Qualifiers: Fatigue type: unspecified Qualified Code(s): R53.83 - Other fatigue Code(s): R53.83 - Other fatigue Plan rule out Seasonal Affective Disorder set alarm in am for 630am to take first dose of adderall, go back to sleep and set second alarm to wake for 7am consider increase in zoloft if symptoms persist'check vitain D level and b12 and folate Medications: Refilled dextroamphetamine-amphetamine 10 mg (Adderall) administer doses at least 4-6 hours apart; Partial Fill upon patient request. 10 mg PO TID 90 tabs 0RF F90.0 - Attention-deficit hyperactivity disorder, predominantly inattentive type dextroamphetamine-amphetamine 10 mg (Adderall) administer doses at least 4-6 hours apart; Partial Fill upon patient request. 10 mg PO TID 90 tabs 0RF F90.0 - Attentio n-deficit hyperactivity disorder, predominantly inattentive type Orders: Orders Vitamin D 25-OH (D2 and D3) Today R53.83 - Other fatigue Vitamin B12 and Folate Today D64.9 - Anemia, unspecified, F90.0 - Attention- deficit hyperactivity disorder, predominantly inattentive type, R53.83 - Other fatigue Counseling and coordination of Care Pt. Self Management counseling: Exercise, Light exposure, Mod caffeine/ETOH intake, Nutrition education and improvement, Sleep hygiene and General coping skills Medication management counseling: Effectiveness, Side effects, Dosing range, Duration, Drug interaction and Adherence Diagnosis and Prognosis Counseling: Accuracy of diagnosis, Prognosis over time, Impact of diagnosis on life functions, Problematic behaviors secondary to diagno sis and Adequacy of current interventions Details: I spent 35 minutes reviewing the record, seeing the patient and documenting in the medical record. Counseling provided to the patient/caregiver as outlined below. Addressed patient/caregiver concerns regarding current medication regime including effective adherence. Addressed patient/caregiver concerns regarding diagnosis and prognosis including accuracy of diagnosis, prognosis over time, impact of diagnosis. Addressed patient/caregiver concerns regarding impact of recent stressors. [facility] Medical History (Updated 07/05/25 @ 17:01 by Yesenia Uribe APRN) Generalized headaches Colon cancer screening Reactive airway disease with wheezing Irregular menstrual cycle Anemia NATALIA on CPAP Hx of deep venous thrombosis Right leg DVT Impaired fasting glucose Lateral epicondylitis of left elbow Normal Pap smear Obesity Varicose veins of right lower extremity Mild intermittent asthma Obstructive sleep apnea on CPAP Urinary, incontinence, stress female Surgical History History of open reduction and internal fixation (ORIF) procedure Family History Father HTN (hypertension) Colon cancer Mother HTN (hypertension) Diabetes mellitus Mental health disorder Brother Parkinson disease Sister Depression Mental health disorder Brother No problems noted. Brother No problems noted. 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
--- OUTSIDE RECORDS SUMMARY | 2025-07-05 18:41 | XMS_ITS | Clinical Summary ---
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
== END 2025-07-05 16:48 | disposition home or self-care (01) ==
LOC: HO.HOP 16:23
PROVIDERS: Visit Provider Clinical Nurse Specialist Psychiatric/Mental Health
DX: F90.0 Attention-deficit hyperactivity disorder, predominantly inattentive type (principal); F41.1 Generalized anxiety disorder; R53.83 Other fatigue
CPT/HCPCS: 99214

== ENCOUNTER 2025-07-14 16:13 | Outpatient (REF) | payer OTHER, SELFPAY ==
--- OUTSIDE RECORDS SUMMARY | 2025-07-14 19:26 | XMS_ITS | Clinical Summary ---
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 Role Phone Unavailable Primary Care Provider Unavailabl e Allergies No known active allergies Medications No known medications Active Problems No known active problems Encounters Date Type Department Care Team Description 07/06/2025 2:30 PM EDT Immunization [facility] [address] [place] [address] Loan Ruiz RN Encounter for vaccination 07/06/2025 Travel from Last 3 Months Immunizations Immunization Administration Dates Next Due Influenza injectable quadriv alent IIV4 with preservative 06/23/2019,06/05/2018,07/11/2017 Influenza injectable quadriv alent preservative free 10/03/2022,06/05/2020 Influenza, IIV3, injectable 07/12/2016 Influenza, seasonal, injecta ble, preservative free 06/03/2024 MMR 09/17/2023,08/20/2023 Pfizer Covid-19 Vaccine 12+ 07/06/2025, Tdap 07/16/2023 Social History Tobacco Use Types [...] 1-dose 75+ series) 2053 Influenza Vaccine Completed 06/20/2025, , 10/03/2022, Additional history exists COVID-19 Vaccine Completed 07/06/2025, , 06/07/2022, Additional history exists HIB Vaccines Aged Out [...]
== END 2025-07-14 16:14 | disposition home or self-care (01) ==
LOC: HO.MAMMO 16:13
PROVIDERS: PCP Internal Medicine; Visit Provider Internal Medicine
DX: Z12.31 Encounter for screening mammogram for malignant neoplasm of breast (principal)
CPT/HCPCS: 77063; 77067

== ENCOUNTER → 2025-07-14 16:15 | Outpatient (BNV) | payer OTHER, SELFPAY | PROVIDERS: PCP Internal Medicine; Visit Provider Internal Medicine | DX: Z12.31 Encounter for screening mammogram for malignant neoplasm of breast (principal) | CPT/HCPCS: 77063; 77067 ==

== ENCOUNTER 2025-08-02 10:45 | Outpatient (REF) | payer OTHER, SELFPAY ==
--- OUTSIDE RECORDS SUMMARY | 2025-08-02 12:31 | XMS_ITS | Clinical Summary ---
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
[2025-08-02 15:25] LABS: Folate 4.4 ng/mL (> or = 4.0); Vitamin B12 312 pg/mL (200-900)
[2025-08-06 14:28] LABS: Vitamin D 25-OH, D2 <4 ng/mL; Vitamin D 25-OH, D3 13 ng/mL; Vitamin D 25-OH, Total 13 ng/mL (30-100)
== END 2025-08-02 10:46 | disposition home or self-care (01) ==
LOC: HO.CHCLDS 10:45
PROVIDERS: Visit Provider Clinical Nurse Specialist Psychiatric/Mental Health
DX: F90.0 Attention-deficit hyperactivity disorder, predominantly inattentive type (principal); F41.1 Generalized anxiety disorder; F33.8 Other recurrent depressive disorders; D64.9 Anemia, unspecified
CPT/HCPCS: 36415; 82306; 82607; 82746

== ENCOUNTER 2025-08-02 16:23 | Outpatient (AMB) | payer OTHER, SELFPAY ==
--- NOTE | 2025-08-02 16:40 | A.OFFPSYCH_ITS ---
Intake Intake Visit Reasons: follow up Aids Social Worker Required: No Allergies tuberculin,PPD,multi-puncture Allergy (Unknown, Verified 06/20/25 10:36) reash ppd Allergy (Unknown, Uncoded 06/20/25 10:36) Rash Medication List - Last Reconciled 08/02/25 by Yesenia Uribe APRN acetaminophen 1,000 mg (2 x 500 mg) PO Q6H albuterol sulfate 90 mcg/actuation 2 puffs inhalation Q6H PRN dextroamphetamine-amphetamine 10 mg (Adderall) 10 mg PO TID ibuprofen 800 mg PO Q8H sertraline 25 mg PO DAILY sumatriptan succinate take 1 tab at onset of headache; if no relief, may repeat 1 tab after at least 2 hrs; max = 2 tabs/24 hrs PO HPI- Psychiatric Chief Complaint: follow up HPI Narrative: Pt reports an increase in depression and anxiety over past several weeks; pt here for follow up re: anxiety and ADHD Pt is adherent with meds. No side effects;she is having more trouble functioning as the fall weather has approached; she is having a harder time getting out of bed in the am; she has been late to work; she reports falling asleep better and appetite intact; pt feels the adderall is very helpful at work and in the and needs to focus after work and in groups socially; pt is willing to increase the zoloft to 50mg daily Past Psychiatric History: no IPLOC; no past tx of ADHD. has been on paxil and prozac in past for anxiety but not much help Subjective Subjective Medication Compliance: Yes Side effects from medications: No Review of Systems Medical Review of Systems: unchanged Mental Status Exam Mental Status Exam Patient Appearance: Well Grooomed Patient Orientation: Person, Place, Time and Situation Level of Consciousness: Awake and Appropriate Patient Behavior: Appropriate Mood Description: Calm and Happy Affect Description: Happy Patient Cognition Impaired: No Ability to Follow Directions: Good Speech Pattern: Clear Memory Description: Intact Hallucinations: None Delusions: Not Present Thought Process: Intact and Goal Oriented Thought Content: positive for Intact and positive for Goal Oriented Judgement: Fair Assessment and Plan Assessment & Plan (1) ADHD, predominantly inattentive type: Status: Acute Code(s): F90.0 - Attention-deficit hyperactivity disorder, predominantly inattentive type (2) JULIO C (generalized anxiety disorder): Status: Acute Code(s): F41.1 - Generalized anxiety disorder (3) Fatigue: Status: Acute Qualifiers: Fatigue type: unspecified Qualified Code(s): R53.83 - Other fatigue Code(s): R53.83 - Other fatigue (4) Seasonal affective disorder: Status: Acute Code(s): F33.8 - Other recurrent depressive disorders Plan increase zoloft to 50mg daily Medications: New sertraline (Zoloft) 50 mg PO DAILY 90 tabs 1RF Refilled dextroamphetamine-amphetamine 10 mg (Adderall) administer doses at least 4-6 hours apart; Partial Fill upon patient request. 10 mg PO TID 90 tabs 0RF F90.0 - Attention-deficit hyperactivity disorder, predominantly inattentive type Discontinued sertraline Discontinued Reason: Doctor's Order 25 mg PO DAILY 90 tabs 2RF Counseling and coordination of Care Pt. Self Management counseling: Exercise, Light exposure, Mod caffeine/ETOH intake, Nutrition education and improvement, Sleep hygiene and General coping skills Medication management counseling: Effectiveness, Side effects, Dosing range, Duration, Drug interaction and Adherence Diagnosis and Prognosis Counseling: Accuracy of diagnosis, Prognosis over time, Impact of diagnosis on life functions, Problematic behaviors secondary to diagnosis and Adequacy of current interventions Details: I spent 30 minutes reviewing the record, seeing the patient and documenting in the medical record. Counseling provided to the patient/caregiver as outlined below. Addressed patient/caregiver concerns regarding current medication regime including effective adherence. Addressed patient/caregiver concerns regarding diagnosis and prognosis including accuracy of diagnosis, prognosis over time, impact of diagnosis. Addressed patient/caregiver concerns regarding impact of recent stressors. [facility] Medical History (Updated 08/02/25 @ 17:04 by Yesenia Uribe APRN) Generalized headaches Colon cancer screening Reactive airway disease with wheezing Irregular menstrual cycle Anemia NATALIA on CPAP Hx of deep venous thrombosis Right leg DVT Impaired fasting glucose Lateral epicondylitis of left elbow Normal Pap smear Obesity Varicose veins of right lower extremity Mild intermittent asthma Obstructive sleep apnea on CPAP Urinary, incontinence, stress female Surgical History History of open reduction and internal fixation (ORIF) procedure Family History Father HTN (hypertension) Colon cancer Mother HTN (hypertension) Diabetes mellitus Mental health disorder Brother Parkinson disease Sister Depression Mental health disorder Brother No problems noted. Brother No problems noted. 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 caring for her mother with early dementia Substance History: none Trauma History: none known Coding Level of Care Code Est Pt Level 4 (80758) Diagnoses ADHD, predominantly inattentive type F90.0 JULIO C (generalized anxiety disorder) F41.1 Fatigue, unspecified type R53.83 Fatigue type: unspecified Seasonal affective disorder F33.8
== END 2025-08-02 17:10 | disposition home or self-care (01) ==
LOC: HO.HOP 16:23
PROVIDERS: PCP Internal Medicine; Visit Provider Clinical Nurse Specialist Psychiatric/Mental Health
DX: F90.0 Attention-deficit hyperactivity disorder, predominantly inattentive type (principal); F41.1 Generalized anxiety disorder; R53.83 Other fatigue; F33.8 Other recurrent depressive disorders
CPT/HCPCS: 99214